=== PATIENT | male | born 1950 | race Caucasian/White ===

== ENCOUNTER 2020-01-10 16:21 | Inpatient (IN) | payer MEDICARE, SELFPAY ==
[2020-01-10] VITALS (8 sets, daily range): BP systolic 113–148; BP diastolic 70–103; PULSE 97–110; RESP 17–20; TEMP 36.4–36.7; O2SAT 99–100; BMI 32.0
--- NOTE | 2020-01-10 16:40 | PC.NURSE ---
MAKI HERRERA RN FROM [facility] CALLED REPORT [id number] ON PATIENT OBTAINED VERBAL ADMISSION ORDERS FROM HECTOR GALINDO APRN AT 1525 OF THE FOLLOWING ADMIT TO DR MELENDEZ FOR NSTEMI IN STEPDOWN CARDIAC DIET CONTINUE HEPARIN DRIP DOSING PER PHARMACY FSBS WITH LOW INTENSITY SLIDING SCALE ACHS ASPIRIN 81MG PO DAILY NS @ 50ML/HR TOPROL XL 25MG PO DAILY MORPHINE 1MG Q2HR IV FOR PAIN ZOFRAN 4MG IV Q6H FOR NAUSEA TYLENOL 650MG Q4H PRN FOR MILD PAIN UP ADLIB CONSULT CARDIOLOGY ECHO MORNING LABS CBC CMP LIVER AND LIPID PANEL SERIAL TROPONINS
--- NOTE | 2020-01-10 17:20 | HMH.ACPN2 ---
Internal Medicine - PN: Subj *Date: 01/10/20 *Time: 17:20 Interval history: Patient presented to [facility] ER today with a 4 day history of chest pain and pressure made worse by eating. EKG reportedly showed no ST changes but his troponin was elevated (around 2.5). Patient was then placed on a heparin drip. He has a history of coronary artery disease and has previously had stents placed by Dr. Hidalgo. I was called by Aurora Sanchez in Dr. Hidalgo's office to accept patient for a direct admission to [facility] from the ER in [facility]. Patient's primary MD is Dr. Yamil Muñoz in [place]. Pt has a history of Diabetes, GERD and hyperlipidemia. Exam Vital signs and Labs for Last 24 Hours: Temp Pulse Resp BP Pulse Ox 97.5 F L 98 H 17 130/83 100 01/10/20 16:43 01/10/20 16:43 01/10/20 16:43 01/10/20 16:43 01/10/20 16:43 I & O for Last 24 hours: Intake & Output 01/07/20 01/08/20 01/09/20 01/10/20 23:59 23:59 23:59 23:59 Weight 204 lb 8 oz - Constitutional no acute distress (conversant) - *Routine HEENT Exam Head: Present: normocephalic Eye: Present: EOMI, PERRL ENT: Present: mucous membranes moist - *Routine Neck Exam Present: supple. Absent: lymphadenopathy - *Routine Respiratory Exam Present: CTA bilaterally - *Routine Cardiovascular Exam Present: RRR - *Routine Abdominal Exam Present: soft, normoactive bowel sounds. Absent: tenderness - *Routine Extremities Exam Absent: cyanosis, clubbing, edema - *Routine Skin Exam Present: warm. Absent: rash - *Routine Neurological Exam Present: alert, oriented X3 Assessment and Plan (1) Non-STEMI (non-ST elevated myocardial infarction) Status: Acute Category: Medical Code(s): I21.4 - Non-ST elevation (NSTEMI) myocardial infarction (2) CAD (coronary artery disease) Status: Acute Qualifiers: Coronary Disease-Associated Artery/Lesion type: [place] artery [place] vs. transplanted heart: [place] heart Associated angina: with unstable angina Qualified Code(s): I25.110 - Atherosclerotic heart disease of [place] coronary artery with unstable angina pectoris Category: Medical Code(s): I25.10 - Atherosclerotic heart disease of [place] coronary artery without angina pectoris (3) History of coronary artery stent placement Status: Acute Category: Surgical Code(s): Z95.5 - Presence of coronary angioplasty implant and graft (4) DM2 (diabetes mellitus, type 2) Status: Acute Qualifiers: Diabetes mellitus penitentiary insulin use: without filler leaf cutter long use Category: Medical Code(s): E11.9 - Type 2 diabetes mellitus without complications (5) GERD (gastroesophageal reflux disease) Status: Acute Qualifiers: Esophagitis presence: esophagitis presence not specified Qualified Code(s): K21.9 - Gastro-esophageal reflux disease without esophagitis Category: Medical Code(s): K21.9 - Gastro-esophageal reflux disease without esophagitis (6) Hyperlipidemia Status: Acute Category: Medical Code(s): E78.5 - Hyperlipidemia, unspecified - Assessment and plan all Dx Assessment and Plan for all problems:: Patient admitted to [facility], orders per Cardiology, planning left heart cath in the morning.
[2020-01-10 18:02] LABS: Coronavirus 19 IgG Antibody Negative (Negative); Coronavirus 19 IgM Antibody Negative (Negative)
[2020-01-10 18:05] LABS: Activated Partial Thrombo Time 46.2 seconds (23.6-34.0)
--- NOTE | 2020-01-10 19:14 | PC.NURSE ---
report given to lisa
[2020-01-10 20:10] LABS: POC Glucose,Bedside 218 (70-110)
[2020-01-10 21:00] LABS: Activated Partial Thrombo Time 34.7 seconds (23.6-34.0)
[2020-01-10 21:11] LABS: Troponin I 2.02 ng/ml (0.00-0.034)
--- NOTE | 2020-01-10 21:36 | PC.NURSE ---
MD Adorno notified of troponin level 2.02. New orders: Cancel additional troponins. Spoke with Patrick Unger about PTT results 34.7. New orders: Increase Heparin gtt from 1000 units/hr to 1400 units/hr. New PTT in 6 hrs. Lab notified.
[2020-01-11] VITALS (27 sets, daily range): BP systolic 103–163; BP diastolic 61–97; PULSE 89–111; RESP 14–22; TEMP 36.6–36.9; O2SAT 90–100; BMI 31.4
--- NOTE | 2020-01-11 | IR_ITS ---
APPROVED REPORT Patient Location: Inpatient PROCEDURES Left heart catheterization Left ventriculogram Selective coronary angiogram INDICATION Acute non-ST elevation myocardial infarction Informed consent was obtained prior to the procedure. COMPLICATIONS none Estimated Blood Loss: less than 10 mls TECHNIQUE One percent lidocaine used to anesthetize the right anterior aspect of the wrist. The right radial artery was accessed via the Seldinger technique. A 6 Persian sheath was placed in the right radial artery. 2.5 mg of verapamil, 800 mcg of nitroglycerin, 1mg Lidocaine and 5000 U Heparin were given through the arterial sheath. The Poppa catheter was also used to perform left heart catheterization, left ventriculogram and selective coronary angiogram. At the end of the procedure the sheath was removed good hemostasis was achieved using Traclet band, patient was transferred to the postop holding area in stable condition. ANGIOGRAPHIC RESULTS The left main artery Normal The left anterior descending artery Double 90% in-stent restenosis as well as 90% edge stent restenosis. The mid LAD then has a 50% stenosis. This is a large vessel which wraps the apex and has distal 80% tandem stenoses The circumflex artery Gives rise to a small to medium sized ramus intermedius which has mid vessel 90 and 99% stenoses accompanied by MERLY II flow. The circumflex artery itself gives rise to a solitary obtuse marginal artery which has proximal 80% and mid vessel 80% stenoses The right coronary artery Is a dominant vessel and has a proximal eccentric calcified 80% stenosis followed by mid vessel 40% followed by distal 90% stenosis. The posterior lateral branch has a mid vessel 80% stenosis. The PRESLEY ventriculogram reveals Dilated ventricle ejection fraction 25 to 30% The left ventricular end-diastolic pressure Critically elevated at 60 mmHg IMPRESSION Severe to critical 3-4 vessel coronary disease as described above Severely reduced ejection fraction Critically elevated LVEDP PLAN 1. Patient requires immediate IV Lasix in order to decrease LVEDP 2. Patient will be transferred to [facility] for surgical revascularization Electronically signed by : Moise Hidalgo, 01/11/2020 13:12:01
[2020-01-11 00:40] LABS: POC Glucose,Bedside 155 (70-110)
[2020-01-11 03:52] LABS: Activated Partial Thrombo Time 47.6 seconds (23.6-34.0)
--- NOTE | 2020-01-11 06:20 | PC.NURSE ---
Byron BRIAN NOTIFIED OF CONSULT
[2020-01-11 06:29] LABS: Basophils # 0.1 K/mm3 (0-0.2); Basophils % 0.7 % (0.1-2.0); Eosinophils # 0.2 K/mm3 (0.0-0.4); Eosinophils % 2.4 % (0.1-12.0); Hematocrit 47.1 % (42.0-52.0); Hemoglobin 15.8 g/dL (14.1-18.0); Lymphocytes # 2.5 K/mm3 (0.7-4.5); Lymphocytes % 25.4 % (10-50); Mean Corpuscular HGB Conc 33.6 g/dL (31.8-35.4); Mean Corpuscular Hemoglobin 30.6 pg (27.0-31.2); Mean Platelet Volume 7.7 fl (7.4-10.4); Monocytes # 0.5 K/mm3 (0.1-1.0); Monocytes % 5.2 % (1.7-9.3); Neutrophils # 6.6 K/mm3 (1.8-7.8); Neutrophils % 66.3 % (37.0-80.0); Platelet Count 232 K/mm3 (142-424); Red Blood Count 5.17 M/mm3 (4.60-6.20); Red Cell Distribution Width 13.8 % (11.5-17.5)
[2020-01-11 06:35] LABS: Chloride 102 mmol/L (98-107)
[2020-01-11 06:36] LABS: Potassium 4.3 mmoL/L (3.5-5.1); Sodium 136 mmol/L (136-145)
[2020-01-11 06:38] LABS: Anion Gap 12.3 mEq/L (5-15); Bilirubin,Unconjugated 0.8 mg/dL (0.0-1.1); Blood Urea Nitrogen 12 mg/dl (9-20); Carbon Dioxide 26 mmol/L (22.0-30.0); Creatinine Clearance Estimated 91 mL/min (50-200); Estimated Glomerular Filt Rate 96 ml/min (>60); GFR (African American) 116 ML/MIN (>60)
[2020-01-11 06:39] LABS: Alanine Aminotransferase 27 U/L (12-78); Albumin Level 3.9 g/dl (3.5-5.0); Albumin/Globulin Ratio 1.3 (1.1-1.8); Alkaline Phosphatase 59 U/L (38-126); Aspartate Amino Transferase 26 U/L (17-59); Bilirubin,Indirect 0.8 mg/dL (0.0-0.9); Bilirubin,Total 0.8 mg/dl (0.2-1.3); Calcium 8.7 mg/dl (8.4-10.2); Chol/HDL Ratio 6.1 (1-3.5); Cholesterol 206 mg/dl (140-200); Globulin 2.9 g/dL (1.3-3.2); Glucose 205 mg/dl (74-100); HDL Cholesterol 34 mg/dl (40-60); Total Protein,Serum 6.8 g/dl (6.3-8.2); Triglycerides 135 mg/dl (30-150); VLDL Cholesterol 27 mg/dL (0-40)
--- NOTE | 2020-01-11 06:50 | PC.NURSE ---
Pt is NPO. Has had a shower this AM. Heparin gtt was increased this AM to 1500 units/hr per Patrick Unger. Pt denies any chest pain. Lungs are clear. BS active. VSS at this time. Pt is NSR with ST depression. Family remains at bedside. Will continue to moniotr.
[2020-01-11 06:51] LABS: POC Glucose,Bedside 190 (70-110)
--- NOTE | 2020-01-11 08:05 | HMH.PHAINT ---
HOME MEDICATION RECONCILIATION COMPLETED USING HOME PHARMACY LIST
--- NOTE | 2020-01-11 08:06 | P.CONPHA_ITS ---
[facility] Pharmacy VTE Monitoring - Patient Demographics Admission date: 01/11/20 Report Date: 01/11/20 Time: 08:06 Allergies/Adverse Reactions: Patient Allergies diphenhydramine [From Benadryl] Adverse Reaction (Verified 01/10/20 17:06) Anxiety Height: 1.7 m Weight: 90.917 kg Patient Problems: Current Active Problems CAD (coronary artery disease) (Acute) Non-STEMI (non-ST elevated myocardial infarction) (Acute) History of coronary artery stent placement (Acute) DM2 (diabetes mellitus, type 2) (Acute) GERD (gastroesophageal reflux disease) (Acute) Hyperlipidemia (Acute) - VTE Risk Labs: VTE Related Lab Results Hgb 15.8 g/dL (14.1-18.0) 01/11/20 06:05 Hct 47.1 % (42.0-52.0) 01/11/20 06:05 Plt Count 232 K/mm3 (142-424) 01/11/20 06:05 APTT 47.6 seconds (23.6-34.0) H D 01/11/20 03:30 BUN 12 mg/dl (9-20) 01/11/20 06:05 Creatinine 0.80 mg/dl (0.66-1.25) 01/11/20 06:05 Estimated Creat Clear 91 mL/min (50-200) 01/11/20 06:05 Was VTE Risk Assessment Performed: Yes VTE Score: 4 VTE Risk Level: Low Risk Clinical Trial Participant: No - Prophylaxis VTE Prophylaxis Ordered?: Yes Types of VTE Prophylaxis: TEDS Knee High
--- NOTE | 2020-01-11 08:14 | CA_ITS ---
APPROVED REPORT EXAM: Comprehensive 2D, Doppler, and color-flow Echocardiogram Remelt Pan Tank Operator: Greer Ferro RDCS Ht: 5 ft 6 in Wt: 200lbs BSA: 2.00 BP: 95/58 mmHg Indications: CAD,NSTEMI,CHF 2D Dimensions LVOT 2.12 cm (M/F) 1.5-2.5 M-Mode Dimensions RVDd 2.41 cm (0.9-2.6) LA Diam 3.86 cm (1.9-4.0) LVDd 5.19 cm (3.5-5.7) Ao Diam 3.36 cm (2.0-3.7) LVDs 4.38 cm (3.5-5.7) IVSd 1.65 cm (0.6-1.1) PWd 1.48 cm (0.6-1.1) EF (Teich) 32.70% FS 15.60% EDV (Teich) 128.90 mL ESV (Teich) 86.80 mL LV Diastology E Decel Time 90.00 (160-240 msec) E/A Ratio 1.2 MED E' 4.60 (< 7 cm/sec) E'/MED E' Ratio 14.78 (>14) LAT E' 8.40 (<10 cm/sec) E/LAT E' Ratio 8.10 (>14) Mitral Valve MV E Max Candelario. 68.00 (40-130 cm/s) MV A Velocity 56.00 (40-130 cm/s) E/A Ratio 1.21 MV Decel. Time 90.00 (160-240 ms) MV PHT 26.00 ms Left Ventricle Technically difficult study because of the patient fact in poor acoustic windows, repeat study with Definity contrast is recommended. Left atrium is mildly enlarged, left ventricle is normal size, mild concentric left ventricular hypertrophy, visually estimated ejection fraction is probably 40 to 45%, there appears to be moderate hypokinesis involving the basal septum, inferior basal and posterolateral wall, repeat study with Definity contrast is recommended. Diastolic parameters are inconclusive. Right Ventricle Right atrium and right ventricle are normal size and contractility. Aortic Valve Aortic valve is minimally thickened and fibrosed, there is no aortic stenosis or aortic insufficiency. Mitral Valve Mitral valve is grossly normal, there is mild mitral regurgitation. Tricuspid Valve Tricuspid valve is grossly normal, there is mild tricuspid regurgitation, tricuspid regurgitation jet velocity is inadequate for calculation of the right ventricular systolic pressure. Pulmonic Valve Pulmonic valve is poorly visualized. Great Vessels Aortic root is normal size. Pericardium No significant pericardial effusion noted. Conclusion 1. Technically difficult study because of the patient factors and poor acoustic windows, repeat study with Definity contrast is recommended. 2. Mildly enlarged left atrium, normal left ventricular size, mild concentric left ventricular hypertrophy, visually estimated ejection fraction approximately 40 to 45% with segmental wall motion abnormality described above, diastolic parameters are inconclusive. 3. Mild mitral and tricuspid regurgitation. 4. No significant pericardial effusion noted. Electronically signed by : Mir Terry, 01/11/2020 18:38:30
--- NOTE | 2020-01-11 08:18 | HMH.CNCARD ---
History of Present Illness Consult date: 01/11/20 Requesting physician: Hill Adorno Consult reason: chest pain Chief complaint: chest pain Additional Medical History:: 1. Coronary artery disease A. History of STEMI, 11/2014, resulting in multivessel stenting, intubation and mechanical ventilation and treatment for V. fib with third-degree heart block also for which temporary pacemaker and amiodarone therapy were used. B. [facility], 11/2014, MARILEE to LAD, ramus, circumflex and RCA C. [facility], 11/2015, stents present in Left main--ostial, prox,midsegment and patent, LAD stent with mild in-stent stenosis. stent in the ramus patent and free of restenosis, Circ stent mild in-stent stenosis,RCA with stent [id number], ,preserved EF, LVEDP is 10mmHg 2. Diabetes mellitus, type II 3. JAC, untreated 4. 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 BPH 6. Hyperlipidemia 7. History of CVA, 2015 8. Hypertension History of present illness: 69-year-old white male with extensive coronary history as noted above was recently on vacation in [place] when he developed substernal pressure type sensation that was worse after eating and would last approximately an hour in duration before improving. Symptoms were persistent over the weekend prompting him to return to this area on Friday. Symptoms were alleviated with 2 sublingual nitroglycerin on Friday but again returning again yesterday prompting him to seek attention and [facility]. Patient was diagnosed with non-ST elevation MT and transferred here to the services of Dr. Hidalgo who has previously cath the patient in the past. Patient denies any chest pressure overnight but has some soreness in the epigastric/diaphragmatic area. Peak troponin at this facility is 2.2 and is now declining. [facility] History Medical History: Reports:: Cancer (skin Cancer), Coronary Artery Disease, Diabetes Mellitus Type 2, Hyperlipidemia, Hypertension, Myocardial Infarction Denies:: MRSA *Have you ever received a pneumonia vaccine?: Yes *Have you received a flu vaccine this season?: No Other Surgeries: Yes: Cardiac Catheterization Amputation: No - *Social History Last grade of school completed: High school graduate Smoking Status: Never smoker Alcohol Intake: never *Occupational Status:: retired Housing: house Household Members: spouse *Travel in the last 8 weeks: None Family Hx:: Cancer, Coronary Artery Disease, Hypertension, Stroke Meds Home Medications Medication Instructions Recorded Confirmed Type Atorvastatin Calcium [Lipitor 40mg 40 mg PO HS 01/10/20 01/10/20 History Tablet*] Metformin HCl 500 mg PO BID 01/10/20 01/10/20 History Miscellaneous [Unknown Home 1 cap PO DAILY 01/10/20 01/10/20 History Medication] Omeprazole [Omeprazole 20mg Tab] 20 mg PO DAILY 01/10/20 01/10/20 History glipiZIDE [Glipizide] 10 mg PO BID 01/10/20 01/10/20 History Allergies Allergy/AdvReac Type Severity Reaction Status Date / Time diphenhydramine AdvReac Anxiety Verified 01/10/20 17:06 [From You] Exam Vital signs and Labs for Last 24 Hours: Temp Pulse Resp BP Pulse Ox 98.0 F 98 H 20 125/77 100 01/11/20 04:30 01/11/20 06:48 01/11/20 06:48 01/11/20 06:48 01/11/20 08:00 Laboratory Results - last 24 hr 01/10/20 17:18: Troponin I 2.20 H 01/10/20 17:18: SARS-CoV-2 IgG Ab (Rapid) Negative, SARS-CoV-2 IgM Ab (Rapid) Negative 01/10/20 17:18: APTT 46.2 H 01/10/20 19:56: POC Glucose 218 H 01/10/20 20:30: Troponin I 2.02 H 01/10/20 20:40: APTT 34.7 H 01/11/20 00:32: POC Glucose 155 H 01/11/20 03:30: APTT 47.6 H D 01/11/20 06:05: WBC 10.0, RBC 5.17, Hgb 15.8, Hct 47.1, MCV 91.0, MCH 30.6, MCHC 33.6, RDW 13.8, Plt Count 232, MPV 7.7, Neut % (Auto) 66.3, Lymph % (Auto) 25.4, [place] % (Auto) 5.2, Eos % (Auto) 2.4, Baso % (Auto) 0.7, Neut # (Auto) 6.6, Lymph # (Auto) 2.5, [place] # (Auto) 0.5, Eos # (Auto) 0.2, Baso # (Auto) 0.1 01/11/20 06:05: Sodium 136, Potassium 4.3, Chlo
--- NOTE | 2020-01-11 08:27 | XR_ITS ---
PROCEDURE: XR CHEST 2V CLINICAL HISTORY: SOA, NSTEMI COMPARISON: No exams were available for comparison FINDINGS: The lung sainz are fairly well expanded and appear clear of infiltrate. There is mild cardiomegaly and there is mild pulmonary congestion. There is a small to moderate right pleural effusion and a tiny left pleural effusion. There is some minimal fluid ascending into the major fissure. IMPRESSION: Mild cardiomegaly with findings of mild chronic congestive heart failure Dictated by: Dr. Isacc Bruner MD 01/11/2020 11:57 Dr. Isacc Bruner MD in [place] 01/11/2020 11:57
--- NOTE | 2020-01-11 08:50 | HMH.ACPN2 ---
Internal Medicine - PN: Subj *Date: 01/11/20 *Time: 08:50 Interval history: Patient with no new complaints today. Exam Vital signs and Labs for Last 24 Hours: Temp Pulse Resp BP Pulse Ox 98.0 F 98 H 20 125/77 100 01/11/20 04:30 01/11/20 06:48 01/11/20 06:48 01/11/20 06:48 01/11/20 08:00 Laboratory Results - last 24 hr 01/10/20 17:18: Troponin I 2.20 H 01/10/20 17:18: SARS-CoV-2 IgG Ab (Rapid) Negative, SARS-CoV-2 IgM Ab (Rapid) Negative 01/10/20 17:18: APTT 46.2 H 01/10/20 19:56: POC Glucose 218 H 01/10/20 20:30: Troponin I 2.02 H 01/10/20 20:40: APTT 34.7 H 01/11/20 00:32: POC Glucose 155 H 01/11/20 03:30: APTT 47.6 H D 01/11/20 06:05: WBC 10.0, RBC 5.17, Hgb 15.8, Hct 47.1, MCV 91.0, MCH 30.6, MCHC 33.6, RDW 13.8, Plt Count 232, MPV 7.7, Neut % (Auto) 66.3, Lymph % (Auto) 25.4, [place] % (Auto) 5.2, Eos % (Auto) 2.4, Baso % (Auto) 0.7, Neut # (Auto) 6.6, Lymph # (Auto) 2.5, [place] # (Auto) 0.5, Eos # (Auto) 0.2, Baso # (Auto) 0.1 01/11/20 06:05: Sodium 136, Potassium 4.3, Chloride 102, Carbon Dioxide 26, Anion Gap 12.3, BUN 12, Creatinine 0.80, Estimated Creat Clear 91, Estimated GFR 96, Est GFR ( Amer) 116, Glucose 205 H, Calcium 8.7, Total Bilirubin 0.8, Direct Bilirubin 0.0, Conjugated Bilirubin 0.0, Indirect Bilirubin 0.8, Unconjugated Bilirubin 0.8, AST 26, ALT 27, Alkaline Phosphatase 59, Total Protein 6.8, Albumin 3.9, Globulin 2.9, Albumin/Globulin Ratio 1.3, Triglycerides 135, Cholesterol 206 H, LDL Cholesterol Direct 135.00 H, VLDL Cholesterol 27, HDL Cholesterol 34 L, Cholesterol/HDL Ratio 6.1 H 01/11/20 06:38: POC Glucose 190 H I & O for Last 24 hours: Intake & Output 01/08/20 01/09/20 01/10/20 01/11/20 23:59 23:59 23:59 23:59 Output Total 575 / 575 Balance -575 / -575 Weight 204 lb 8 oz 200 lb 7 oz - Constitutional no acute distress - *Routine HEENT Exam Head: Present: normocephalic Eye: Present: EOMI ENT: Present: mucous membranes moist - *Routine Neck Exam Present: supple. Absent: lymphadenopathy - *Routine Respiratory Exam Present: CTA bilaterally - *Routine Cardiovascular Exam Present: RRR - *Routine Abdominal Exam Present: soft, normoactive bowel sounds. Absent: tenderness - *Routine Extremities Exam Absent: cyanosis, clubbing, edema - *Routine Skin Exam Present: warm. Absent: rash - *Routine Neurological Exam Present: alert, oriented X3 Assessment and Plan (1) Non-STEMI (non-ST elevated myocardial infarction) Status: Acute Category: Medical Code(s): I21.4 - Non-ST elevation (NSTEMI) myocardial infarction (2) CAD (coronary artery disease) Status: Acute Qualifiers: Coronary Disease-Associated Artery/Lesion type: [place] artery [place] vs. transplanted heart: [place] heart Associated angina: with unstable angina Qualified Code(s): I25.110 - Atherosclerotic heart disease of [place] coronary artery with unstable angina pectoris Category: Medical Code(s): I25.10 - Atherosclerotic heart disease of [place] coronary artery without angina pectoris (3) History of coronary artery stent placement Status: Acute Category: Surgical Code(s): Z95.5 - Presence of coronary angioplasty implant and graft (4) DM2 (diabetes mellitus, type 2) Status: Acute Qualifiers: Diabetes mellitus alf insulin use: without alf use Category: Medical Code(s): E11.9 - Type 2 diabetes mellitus without complications (5) GERD (gastroesophageal reflux disease) Status: Acute Qualifiers: Esophagitis presence: esophagitis presence not specified Qualified Code(s): K21.9 - Gastro-esophageal reflux disease without esophagitis Category: Medical Code(s): K21.9 - Gastro-esophageal reflux disease without esophagitis (6) Hyperlipidemia Status: Acute Category: Medical Code(s): E78.5 - Hyperlipidemia, unspecified - Assessment and plan all Dx Assessment and Plan for all problems:: Left heart cath today, echo andiin
--- NOTE | 2020-01-11 09:30 | HMH.HP ---
*Admission Date: 01/11/20 <Shima Sharma - 01/11/20 09:40> *Chief complaint: Chest pain <Shima Sharma 01/11/20 09:40> *History of present illness: As per cardiology note. 69-year-old white male with extensive coronary history and other history as follows: 1. Coronary artery disease A. History of STEMI, 11/2014, resulting in multivessel stenting, intubation and mechanical ventilation and treatment for V. fib with third-degree heart block also for which temporary pacemaker and amiodarone therapy were used. B. [facility], 11/2014, MARILEE to LAD, ramus, circumflex and RCA C. [facility], 11/2015, stents present in Left main--ostial, prox,midsegment and patent, LAD stent with mild in-stent stenosis. stent in the ramus patent and free of restenosis, Circ stent mild in-stent stenosis,RCA with stent [id number], ,preserved EF, LVEDP is 10mmHg 2. Diabetes mellitus, type II 3. JAC, untreated 4. 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 BPH 6. Hyperlipidemia 7. History of CVA, 2015 8. Hypertensionas Patient was recently on vacation in [place] when he developed substernal pressure type sensation that was worse after eating and would last approximately an hour in duration before improving. Symptoms were persistent over the weekend prompting him to return to this area on Friday. Symptoms were alleviated with 2 sublingual nitroglycerin on Friday but again returning again yesterday prompting him to seek attention and [facility]. Patient was diagnosed with non-ST elevation ID and transferred here to the services of Dr. Hidalgo who has previously cathed the patient in the past. Patient denies any chest pressure overnight but has some soreness in the epigastric/diaphragmatic area. Peak troponin at this facility is 2.2 and is now declining. Patient states he has had some nausea but no vomiting. At the time of this exam patient is comfortable. He states he has had some restlessness but denies chest pain. <Shima Sharma 01/11/20 09:40> [facility] History Medical History: Reports:: Cancer (skin Cancer), Coronary Artery Disease, Diabetes Mellitus Type 2, Hyperlipidemia, Hypertension, Myocardial Infarction Denies:: MRSA, Seizures <SharmaShima 01/11/20 09:40> *Have you ever received a pneumonia vaccine?: Yes <SharmaShima soriano 01/11/20 09:40> *Have you received a flu vaccine this season?: No <Shima Sharma 01/11/20 09:40> Other Surgeries: Yes: Cardiac Catheterization, Coronary Stent, Pacemaker <Shima Sharma 01/11/20 09:40> Amputation: No <ZacharyShima - 01/11/20 09:40> - *Social History Last grade of school completed: High school graduate <Sharma,Shima - 01/11/20 09:40> Smoking Status: Never smoker <Shima Sharma 01/11/20 09:40> Alcohol Intake: never <Shima Sharma 01/11/20 09:40> *Occupational Status:: retired <Shima Sharma 01/11/20 09:40> Housing: house <Shima Sharma 01/11/20 09:40> Household Members: spouse <Shima Sharma 01/11/20 09:40> *Travel in the last 8 weeks: None <SharmaShima soriano 01/11/20 09:40> Family Hx:: Cancer, Coronary Artery Disease, Diabetes, Hypertension, Stroke <Shima Sharma 01/11/20 09:40> Review of Systems - Constitutional Denies fever(s) <Shima Sharma 01/11/20 09:40> - Eyes Denies change in vision <Shima Sharma 01/11/20 09:40> - ENT Denies difficulty swallowing, Denies ear pain, Denies sore throat <Shima Sharma 01/11/20 09:40> - *Cardiovascular Reports chest pain, Reports shortness of breath, Denies leg swelling, Denies rapid, pounding, or irregular heartbeat <Shima Sharma 01/11/20 09:40> - *Respiratory Reports shortness of breath, Denies chest congestion, Denies cough <Shima Sharma 01/11/20 09:40> - *Gastrointestinal Reports excessive passing of gas, Reports nausea, Denies belching, Denies constipation, Denies heartburn, Denies black, tarry stools, Denies vomiting <Shima Sharma - 01/11/20 09:40> - *Genitourinary Reports difficu
[2020-01-11 10:25] LABS: Activated Partial Thrombo Time 52.5 seconds (23.6-34.0)
[2020-01-11 10:28] LABS: NT Pro Brain Natriuretic Pep. 2040 pg/mL (0-125)
--- NOTE | 2020-01-11 15:31 | PC.NURSE ---
Heparin gtt restarted @ 31 mls/hr at this time per Jin Parekh.
[2020-01-11 16:22] LABS: POC Glucose,Bedside 226 (70-110)
--- NOTE | 2020-01-11 19:48 | PC.NURSE ---
AWAITING BED @ . PT RESTING IN BED COMFORTABLY. NO COMPLAINTS VOICED. ON 2 L O2 PER NASAL CANNULA. NSR W/ ST DEPRESSION NOTED ON TELY, UNCHANGED FROM PREV SHIFT. REMAINS AFEBRILE. AMBULATES W/ STANDBY ASSISTANCE TO BATHROOM, TOLERATING ACTIVITY WELL. VOIDING W/O DIFFICULTY. BM THIS SHIFT. R RADIAL CATH SITE DRESSING W/ QUARTER SIZE SEROSANG SHADOWING NOTED. CAP REFILL <3 SEC. PULSES PRESENT AND EQUAL. HEPARIN GTT INFUSING @ 31 MLS/HR. AT BEDSIDE. CALL GUILHERME W/IN REACH.
[2020-01-11 21:38] LABS: POC Glucose,Bedside 153 (70-110)
[2020-01-11 22:25] LABS: Activated Partial Thrombo Time 34.4 seconds (23.6-34.0)
--- NOTE | 2020-01-11 22:30 | PC.NURSE ---
Vicenta VALENTIN, PHARMACIST CALLED THIS RN AND INSTRUCTED TO ADJUST HEPARIN GTT TO 1700 UNITS, 34 ML/HR.
[2020-01-12] VITALS: BP 133/67; BP 133/68; PULSE 90; PULSE 92; PULSE 94; RESP 15; RESP 25; TEMP 36.7; O2SAT 92; O2SAT 93
--- NOTE | 2020-01-12 01:37 | PC.NURSE ---
[facility] CALLED WITH UPDATE THAT THERE ARE NO BEDS AVAILABLE AT THIS TIME.
[2020-01-12 02:00] VITALS: BP 129/80; PULSE 98; O2SAT 93
--- NOTE | 2020-01-12 02:18 | PC.NURSE ---
A&OX3. MANAGER HUMAN CAPITAL EQUAL BILAT. LUNGS CLEAR T/O AUSCULTATION. INCREASED OXYGEN FROM 2L TO 3LNC THIS SHIFT R/T O2SAT NOTED 86%-89% WHILE SLEEPING. NSR WITH ST DEPRESSION PER GARBAGE STOKER. PT NOTED WITH HR 110-120 WHILE STANDING AT BEDSIDE TO USE URINAL, ONCE BACK IN BED AND RESTING HR WNL. PULSE +2. CAP REFILL <3 SEC. SKIN IS PINK AND WARM PER PALPATION. RIGHT RADIAL SITE NOTED CDI. INDEPENDENT WITH ADL'S. NO COMPLAINTS STATED THIS SHIFT. VSS. WILL CONTINUE TO MONITOR.
[2020-01-12 04:00] VITALS: BP 131/87; PULSE 90; PULSE 97; RESP 17; TEMP 36.6; O2SAT 91
[2020-01-12 05:25] LABS: Activated Partial Thrombo Time 65.4 seconds (23.6-34.0)
--- NOTE | 2020-01-12 05:36 | PC.NURSE ---
Vicenta VALENTIN, PHARMACIST INSTRUCTED TO KEEP HEPARIN GTT AT SAME RATE OF 1700 UNITS, 34ML/HR R/T 0430 PTT.
[2020-01-12 06:00] VITALS: BP 128/68; PULSE 89; O2SAT 91
[2020-01-12 08:00] VITALS: BP 118/70; PULSE 84; PULSE 89; RESP 16; O2SAT 92
--- NOTE | 2020-01-12 08:16 | HMH.ACPN2 ---
Internal Medicine - PN: Subj *Date: 01/12/20 *Time: 08:16 Interval history: Patient with no new complaints this morning, awaiting bed at . Exam Vital signs and Labs for Last 24 Hours: Temp Pulse Resp BP Pulse Ox 98 F 89 16 118/70 92 L 01/12/20 04:00 01/12/20 08:00 01/12/20 08:00 01/12/20 08:00 01/12/20 08:00 Laboratory Results - last 24 hr 01/11/20 09:50: APTT 52.5 H* D 01/11/20 09:50: NT-Pro-B Natriuret Pep 2040 H 01/11/20 14:20: APTT 41.0 H D 01/11/20 15:58: POC Glucose 226 H 01/11/20 21:15: POC Glucose 153 H 01/11/20 21:40: APTT 34.4 H 01/12/20 04:45: APTT 65.4 H* D Vital Signs - 24 hr 01/11/20 13:10 01/11/20 13:13 01/11/20 13:20 Temperature Pulse Rate Pulse Rate [Apical] 100 H 97 H 98 H Pulse Rate [Left Brachial] Respiratory Rate 20 20 20 Blood Pressure [Left Arm] 127/82 132/89 130/87 02 Sat by Pulse Oximetry 91 L 94 L 92 L 01/11/20 13:25 01/11/20 13:40 01/11/20 13:55 Temperature 97.9 F Pulse Rate Pulse Rate [Apical] 97 H 100 H 97 H Pulse Rate [Left Brachial] Respiratory Rate 20 20 18 Blood Pressure [Left Arm] 125/85 126/77 126/80 02 Sat by Pulse Oximetry 96 96 91 L 01/11/20 14:25 01/11/20 14:55 01/11/20 15:25 Temperature 98.1 F 97.9 F Pulse Rate Pulse Rate [Apical] 89 97 H 101 H Pulse Rate [Left Brachial] Respiratory Rate 14 16 16 Blood Pressure [Left Arm] 113/79 132/83 163/97 H 02 Sat by Pulse Oximetry 97 93 L 92 L 01/11/20 15:55 01/11/20 16:00 01/11/20 16:25 Temperature 98.0 F 98.1 F Pulse Rate 100 H Pulse Rate [Apical] 103 H 111 H Pulse Rate [Left Brachial] Respiratory Rate 16 18 Blood Pressure [Left Arm] 120/74 140/89 02 Sat by Pulse Oximetry 94 L 90 L 01/11/20 17:25 01/11/20 18:25 01/11/20 19:25 Temperature 98.1 F 98.0 F Pulse Rate Pulse Rate [Apical] 104 H 103 H Pulse Rate [Left Brachial] 93 H Respiratory Rate 16 16 16 Blood Pressure [Left Arm] 122/82 127/79 103/68 L 02 Sat by Pulse Oximetry 92 L 92 L 91 L 01/11/20 20:00 01/11/20 20:25 01/11/20 22:00 Temperature 98.4 F 98.1 F Pulse Rate 100 H Pulse Rate [Apical] Pulse Rate [Left Brachial] 98 H 95 H 94 H Respiratory Rate 22 15 18 Blood Pressure [Left Arm] 119/77 115/61 127/85 02 Sat by Pulse Oximetry 90 L 90 L 92 L 01/12/20 00:00 01/12/20 02:00 01/12/20 04:00 Temperature 98.1 F 98 F Pulse Rate 90 90 Pulse Rate [Apical] Pulse Rate [Left Brachial] 92 H 98 H 97 H Respiratory Rate 15 17 Blood Pressure [Left Arm] 133/68 129/80 131/87 02 Sat by Pulse Oximetry 93 L 93 L 91 L 01/12/20 06:00 01/12/20 08:00 Temperature Pulse Rate Pulse Rate [Apical] Pulse Rate [Left Brachial] 89 89 Respiratory Rate 16 Blood Pressure [Left Arm] 128/68 118/70 02 Sat by Pulse Oximetry 91 L 92 L I & O for Last 24 hours: Intake & Output 01/09/20 01/10/20 01/11/20 01/12/20 23:59 23:59 23:59 23:59 Intake Total 821 / 821 Output Total 2124 1375 / 1375 Balance -2124 / -2124 -554 / -554 Weight 204 lb 8 oz 200 lb 7 oz - Constitutional no acute distress - *Routine HEENT Exam Head: Present: normocephalic Eye: Present: EOMI ENT: Present: mucous membranes moist - *Routine Neck Exam Present: supple. Absent: lymphadenopathy - *Routine Respiratory Exam Present: CTA bilaterally - *Routine Cardiovascular Exam Present: RRR - *Routine Abdominal Exam Present: soft, normoactive bowel sounds. Absent: tenderness - *Routine Extremities Exam Absent: cyanosis, clubbing, edema - *Routine Skin Exam Present: warm. Absent: rash - *Routine Neurological Exam Present: alert, oriented X3 Assessment and Plan (1) Non-STEMI (non-ST elevated myocardial infarction) Status: Acute Category: Medical Code(s): I21.4 - Non-ST elevation (NSTEMI) myocardial infarction (2) CAD (coronary artery disease) Status: Acute Qualifiers: Coronary Disease-Associated Artery/Lesion type: [place] artery [place] vs. transplanted hea
--- NOTE | 2020-01-12 08:27 | HMH.PHAHEP ---
[facility] Pharmacy Heparin Dosing - Demographic Data Admission date:: 01/10/20 Date: 01/12/20 Time: 08:27 Allergies/Adverse Reactions: Allergies Allergy/AdvReac Type Severity Reaction Status Date / Time diphenhydramine AdvReac Anxiety Verified 01/10/20 17:06 [From [place]] Height: 1.7 m Weight: 90.9 kg - Indication Medication therapy:: Heparin Current Indications:: NSTEMI Patient Problems: Current Active Problems CAD (coronary artery disease) (Acute) Non-STEMI (non-ST elevated myocardial infarction) (Acute) History of coronary artery stent placement (Acute) DM2 (diabetes mellitus, type 2) (Acute) GERD (gastroesophageal reflux disease) (Acute) Hyperlipidemia (Acute) CVA?: No Bleeding problem?: No Kidney disease?: No NE?: Yes Desired PTT range:: 60-80 seconds - Monitoring Dose Monitor 1 Date: 01/10/20 Time: 17:18 PTT Result:: 46.2 Infusion Rate:: 1000 UNITS/HR = 20 ML/HR Comment:: PATIENT CAME FROM [facility] ALREADY STARTED ON HEPARIN DRIP. Dose Monitor 2 Date: 01/10/20 Time: 20:40 PTT Result:: 34.7 Infusion Rate:: 28 ML/HR Dose Monitor 3 Date: 01/11/20 Time: 03:30 PTT Result:: 47.6 Infusion Rate:: 30 ML/HR Comment:: [id number] Dose Monitor 4 Date: 01/11/20 Time: 10:00 PTT Result:: 52.5 Infusion Rate:: HEPARIN DRIP WAS STOPPED FOR SEVERAL HOURS BY SAND BOBBER DURING PROCEDURE. Dose Monitor 5 Date: 01/11/20 Time: 14:20 PTT Result:: 41.0 Infusion Rate:: 1550 UNITS/HR = 31 ML/HR Comment:: PTT DRAWN AND DRIP RESTARTED AT 31 ML/HR WHEN PATIENT RETURNED TO 2ND FLOOR. PATIENT IS AWAITING TRANSFER TO . Dose Monitor 6 Date: 01/11/20 Time: 21:30 PTT Result:: 34.4 Infusion Rate:: 1700 UNITS/HR = 34 ML/HR Dose Monitor 7 Date: 01/12/20 Time: 04:30 PTT Result:: 65.4 Infusion Rate:: 34 ML/HR Dose Monitor 8 Date: 01/12/20 Time: 11:30 Comment:: PATIENT TRANSFERRED TO . - Core Measures Is INR > or = 2 at discharge?: No Most Recent Labs:: Laboratory Results - last 24 hr 01/11/20 09:50: APTT 52.5 H* D 01/11/20 09:50: NT-Pro-B Natriuret Pep 2040 H 01/11/20 14:20: APTT 41.0 H D 01/11/20 15:58: POC Glucose 226 H 01/11/20 21:15: POC Glucose 153 H 01/11/20 21:40: APTT 34.4 H 01/12/20 04:45: APTT 65.4 H* D Were Heparin and Warfarin started on the same day?: No If not, why?: PATIENT TRANSFERRED TO
--- NOTE | 2020-01-12 10:16 | HMH.PNCARD ---
Subjective Date: 01/12/20 Time: 10:05 Principal diagnosis: non-stemi Interval history: This is a 69-year-old white gentleman who was admitted to the hospital for a non-ST elevation myocardial infarction. The patient did undergo left cardiac catheterization yesterday and was found to have severe to critical 3-4 vessel coronary artery disease with severely reduced ejection fraction and a critically elevated LVEDP. The patient has been being diuresed on Lasix. He has an -2 L fluid balance overnight tonight. The patient will be transferred to [facility] for surgical revascularization. We are currently awaiting a bed. He denies any chest pain or pressure this morning. He states his shortness of breath is significantly improved overnight. He denies any fever, chills, nausea, vomiting, diarrhea. The patient states that he has felt much better with diuresis. Exam Vital signs and Labs for Last 24 Hours: Temp Pulse Resp BP Pulse Ox 98 F 89 16 118/70 92 L 01/12/20 04:00 01/12/20 08:00 01/12/20 08:00 01/12/20 08:00 01/12/20 08:00 Laboratory Results - last 24 hr 01/11/20 09:50: APTT 52.5 H* D 01/11/20 09:50: NT-Pro-B Natriuret Pep 2040 H 01/11/20 14:20: APTT 41.0 H D 01/11/20 15:58: POC Glucose 226 H 01/11/20 21:15: POC Glucose 153 H 01/11/20 21:40: APTT 34.4 H 01/12/20 04:45: APTT 65.4 H* D I & O for Last 24 hours: Intake & Output 01/09/20 01/10/20 01/11/20 01/12/20 23:59 23:59 23:59 23:59 Intake Total 821 / 821 Output Total 2124 / 2124 1375 / 1375 Balance -2124 / -2124 -554 / -554 Weight 204 lb 8 oz 200 lb 7 oz 200 lb 6.403 oz Narrative: Telemetry strip shows sinus rhythm with a rate of 89. - Constitutional no acute distress, obese - *Routine HEENT Exam Head: Present: normocephalic, atraumatic Eye: Present: EOMI, PERRL ENT: Present: mucous membranes moist - *Routine Neck Exam Present: supple, full ROM, normal carotid upstroke. Absent: JVD, carotid bruit, lymphadenopathy - *Routine Respiratory Exam Present: CTA bilaterally - *Routine Cardiovascular Exam Present: RRR, Normal S1, Normal S2. Absent: murmur - *Routine Abdominal Exam Present: soft, normoactive bowel sounds. Absent: tenderness, distended - *Routine Extremities Exam Present: full ROM, pulses intact, normal capillary refill. Absent: cyanosis, clubbing, edema - *Routine Skin Exam Present: intact, warm. Absent: erythema, rash - *Routine Neurological Exam Present: alert, oriented X3, CN II-XII intact. Absent: sensory deficit, motor deficit Progress Note: A&P (1) Non-STEMI (non-ST elevated myocardial infarction) Status: Acute (2) CAD (coronary artery disease) Status: Acute (3) History of coronary artery stent placement Status: Acute (4) DM2 (diabetes mellitus, type 2) Status: Acute (5) GERD (gastroesophageal reflux disease) Status: Acute (6) Hyperlipidemia Status: Acute Assessment and Plan for All Diagnoses:: Plan: 1. Patient was admitted to the hospital with non-ST ovation myocardial infarction. He underwent left cardiac catheterization yesterday and was found to have severe to critical 3-4 vessel disease which will require surgical revascularization. The patient has been accepted by the [facility] and we are currently awaiting a bed for transfer. He denies any chest pain or pressure this morning. He remains on aspirin at this time. 2. The patient also had a critically elevated LVEDP at 60 mmHg. He has been diuresed with IV Lasix. He had a -2 L fluid balance overnight. He states her shortness of breath has improved significantly and he is feeling better. We will continue with IV diuresis at this time he does need significant diuresis secondary to his severely elevated LVEDP 3. We will continue aspirin. 4. We will start bisoprolol 5 mg p.o. daily for beta-chapo given his coronary artery disease. We will hold off on an DEMETRIA inhibitor at this time as his b
--- NOTE | 2020-01-12 10:19 | PC.NURSE ---
Attempted to call report to [facility], they state the room is being cleaned, will attempt to call back in 30 minutes.
[2020-01-12 11:02] LABS: POC Glucose,Bedside 264 (70-110)
--- NOTE | 2020-01-12 11:53 | PC.NURSE ---
1106- Report called to Dianna CHARLES at at this time, [facility] contacted for transfer 1154- [facility] to floor to transport patient to , left unit with heparin drip infusing at 1700 units/hr, on 3LNC, left in stable condition.
--- NOTE | 2020-01-13 06:04 | HMH.DCSUM ---
General - General Admission date:: 01/10/20 Discharge date: 01/12/20 HPI HPI: As per cardiology note: 69-year-old white male with extensive coronary history and other history as follows: 1. Coronary artery disease A. History of STEMI, 11/2014, resulting in multivessel stenting, intubation and mechanical ventilation and treatment for V. fib with third-degree heart block also for which temporary pacemaker and amiodarone therapy were used. B. [facility], 11/2014, MARILEE to LAD, ramus, circumflex and RCA C. [facility], 11/2015, stents present in Left main--ostial, prox,midsegment and patent, LAD stent with mild in-stent stenosis. stent in the ramus patent and free of restenosis, Circ stent mild in-stent stenosis,RCA with stent [id number], ,preserved EF, LVEDP is 10mmHg 2. Diabetes mellitus, type II 3. JAC, untreated 4. 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 BPH 6. Hyperlipidemia 7. History of CVA, 2015 8. Hypertensionas Patient was recently on vacation in [place] when he developed substernal pressure type sensation that was worse after eating and would last approximately an hour in duration before improving. Symptoms were persistent over the weekend prompting him to return to this area on Friday. Symptoms were alleviated with 2 sublingual nitroglycerin on Friday but again returning again yesterday prompting him to seek attention at [facility]. Patient was diagnosed with non-ST elevation [place] and transferred to [facility] to the services of Dr. Hidalgo who had previously cathed the patient in the past. Patient denied any chest pressure overnight but had some soreness in the epigastric/diaphragmatic area. Peak troponin at [facility] facility was 2.2 and was declining. Patient stated he had some nausea but no vomiting. At the time of exam patient was comfortable. He stated he experienced some restlessness but denied chest pain. Hospital Course Hospital Course: Patient was admitted directly from the [facility]. He was maintained on a heparin drip and started on bisoprolol, Lasix 40 IV every 8 hours, sliding scale insulin, and nitroglycerin as needed. He was seen by cardiology and followed by them. He did have a cardiac catheterization with the following results.: ANGIOGRAPHIC RESULTS The left main artery Normal The left anterior descending artery Double 90% in-stent restenosis as well as 90% edge stent restenosis. The mid LAD then has a 50% stenosis. This is a large vessel which wraps the apex and has distal 80% tandem stenoses The circumflex artery Gives rise to a small to medium sized ramus intermedius which has mid vessel 90 and 99% stenoses accompanied by MERLY II flow. The circumflex artery itself gives rise to a solitary obtuse marginal artery which has proximal 80% and mid vessel 80% stenoses The right coronary artery Is a dominant vessel and has a proximal eccentric calcified 80% stenosis followed by mid vessel 40% followed by distal 90% stenosis. The posterior lateral branch has a mid vessel 80% stenosis. The PRESLEY ventriculogram reveals Dilated ventricle ejection fraction 25 to 30% The left ventricular end-diastolic pressure Critically elevated at 60 mmHg IMPRESSION Severe to critical 3-4 vessel coronary disease as described above Severely reduced ejection fraction Critically elevated LVEDP PLAN 1. Patient requires immediate IV Lasix in order to decrease LVEDP 2. Patient will be transferred to [facility] for surgical revascularization Bed was not immediately available at the [facility]. The patient was diuresed with the Lasix will a -2 L fluid balance overnight. He continues to deny any chest pain or pressure the following morning. Shortness of breath significantly improved with the diuresis. In the p.m. of 01/12/2020 bed was obtained at [facility]. He was transferred via ambulance with EMS for further cardiac intervention. He was
--- NOTE | 2020-01-14 08:17 | INFXCTL.NOTE ---
[facility] Infection Control Department called on 01/14/20 and stated that they tested patient for COVID-19 on 01/12/20, and patient is positive. Updated records to reflect.
== END 2020-01-12 11:55 | disposition short-term general hospital (02) | DRG 281 ==
PROVIDERS: Internal Medicine; Nurse Practitioner Family; Physician Assistant; Admitting Provider Family Medicine; PCP Family Medicine; Visit Provider Family Medicine
PROC: 4A023N7 Measurement of Cardiac Sampling and Pressure, Left Heart, Percutaneous Approach (ICD-10-PCS; principal; 2020-01-11 10:00)
DX: I21.4 Non-ST elevation (NSTEMI) myocardial infarction (principal); T82.855A Stenosis of coronary artery stent, initial encounter; I25.118 Atherosclerotic heart disease of native coronary artery with other forms of angina pectoris; K21.9 Gastro-esophageal reflux disease without esophagitis; E78.5 Hyperlipidemia, unspecified; E11.9 Type 2 diabetes mellitus without complications; Z95.5 Presence of coronary angioplasty implant and graft
CPT/HCPCS: 36415; 71046; 80053; 80061; 80076; 82962; 83880; 84484; 85025; 85730; 86328; 93306; 93458; 99152; C1725; C1769; J1644; Q9967

== ENCOUNTER → 2020-03-20 10:47 | Outpatient (CLI) | payer MEDICARE, SELFPAY ==
--- NOTE | 2020-03-20 10:49 | CA_ITS ---
APPROVED REPORT EXAM: Comprehensive 2D, Doppler, and color-flow Echocardiogram Operating Systems Specialist: Chaparrita Davis CRT Ht: 5 ft 6 in Wt: 194lbs BSA: 1.97 BP: 107/70 mmHg Indications: CAD, Cardiomyopathy, Stemi, CABG 02/15/20, post covid,GERD, pacer, 2D Dimensions LVOT 1.95 cm (M/F) 1.5-2.5 M-Mode Dimensions RVDd 3.22 cm (0.9-2.6) LA Diam 4.79 cm (1.9-4.0) LVDd 5.83 cm (3.5-5.7) Ao Diam 4.30 cm (2.0-3.7) LVDs 4.84 cm (3.5-5.7) IVSd 1.45 cm (0.6-1.1) PWd 0.68 cm (0.6-1.1) EF (Teich) 35.00% FS 17.00% EDV (Teich) 168.50 mL ESV (Teich) 109.60 mL LV Diastology E Decel Time 190.00 (160-240 msec) E/A Ratio 1.00 MED E' 4.20 (< 7 cm/sec) E'/MED E' Ratio 19.76 (>14) LAT E' 7.10 (<10 cm/sec) E/LAT E' Ratio 11.69 (>14) Aortic Valve AO Peak GR. 6.80 mmHg Mitral Valve MV A Velocity 83.00 (40-130 cm/s) E/A Ratio 1.00 MV Decel. Time 190.00 (160-240 ms) Pulmonary Valve PV Peak Velocity 58.00 (50-150 cm/s) Tricuspid Valve TR P. Velocity 232.00 cm/s RAP Estimate 10.00 mmHg RVSP 31.60 mmHg Left Ventricle Technically difficult study because of the patient factors and poor acoustic windows. Left atrium is mildly enlarged, left ventricle is normal size, mild concentric left ventricular hypertrophy, visually estimated ejection fraction approximately 45 to 50%, there is abnormal septal motion, there appears to be mild hypokinesis involving the distal septum and apical wall. If clinically indicated repeat study with Definity contrast is recommended. Diastolic parameters are inconclusive. Right Ventricle Right atrium and right ventricle are normal size and contractility, historically patient has pacemaker, the leads are not visualized in this study. Aortic Valve Aortic valve is thickened and calcified leaflet continue to display good mobility, there is no aortic stenosis or aortic insufficiency. Mitral Valve Mitral valve has mitral calcification, leaflets are minimally thickened, there is no mitral stenosis, there is mild mitral regurgitation. Tricuspid Valve Tricuspid valve is grossly normal, there is mild tricuspid regurgitation. Tricuspid regurgitation jet velocity is inadequate for calculation of the right ventricular systolic pressure. Pulmonic Valve Pulmonic valve is poorly visualized. Great Vessels Aortic root is normal size. Pericardium Small pericardial effusion noted. Conclusion 1. Technically difficult study. Mildly enlarged left atrium, normal left ventricular size, visually estimated ejection fraction 45 to 50%, there is abnormal septal motion and segmental wall motion abnormality described above, diastolic parameters are inconclusive. 2. Historically patient has pacemaker, the leads are not visualized in the study. 3. Mild mitral and tricuspid regurgitation. 4. Small pericardial effusion noted. Electronically signed by : Mir Terry, 03/21/2020 06:19:59
== END ==
PROVIDERS: PCP Family Medicine; Visit Provider Nurse Practitioner Family
DX: E11.69 Type 2 diabetes mellitus with other specified complication (principal); E78.5 Hyperlipidemia, unspecified; I21.4 Non-ST elevation (NSTEMI) myocardial infarction; I25.110 Atherosclerotic heart disease of native coronary artery with unstable angina pectoris; I25.5 Ischemic cardiomyopathy; K21.9 Gastro-esophageal reflux disease without esophagitis; Z95.1 Presence of aortocoronary bypass graft; Z95.5 Presence of coronary angioplasty implant and graft; Z79.84 Long term (current) use of oral hypoglycemic drugs
CPT/HCPCS: 93306

== ENCOUNTER → 2021-10-15 09:42 | Outpatient (CLI) | payer MEDICARE, SELFPAY ==
[2021-10-15 10:11] LABS: Basophils # 0.1 K/mm3 (0-0.2); Basophils % 0.8 % (0.1-2.0); Eosinophils # 0.2 K/mm3 (0.0-0.4); Eosinophils % 1.9 % (0.1-12.0); Hematocrit 48.3 % (42.0-52.0); Hemoglobin 15.5 g/dL (14.1-18.0); Lymphocytes # 1.3 K/mm3 (0.7-4.5); Lymphocytes % 16.3 % (10-50); Mean Corpuscular HGB Conc 32.1 g/dL (31.8-35.4); Mean Corpuscular Hemoglobin 30.1 pg (27.0-31.2); Mean Corpuscular Volume 93.8 fl (80-94); Mean Platelet Volume 8.2 fl (7.4-10.4); Monocytes # 0.4 K/mm3 (0.1-1.0); Monocytes % 5.3 % (1.7-9.3); Neutrophils # 6.2 K/mm3 (1.8-7.8); Neutrophils % 75.6 % (37.0-80.0); Platelet Count 209 K/mm3 (142-424); Red Blood Count 5.15 M/mm3 (4.60-6.20); Red Cell Distribution Width 13.6 % (11.5-17.5); White Blood Count 8.2 K/mm3 (4.8-10.8)
[2021-10-15 10:42] LABS: Chloride 103 mmol/L (98-107); Sodium 137 mmol/L (136-145)
[2021-10-15 10:43] LABS: Potassium 4.1 mmoL/L (3.5-5.1)
[2021-10-15 10:45] LABS: Alanine Aminotransferase 28 U/L (12-78); Albumin Level 4.1 g/dl (3.5-5.0); Alkaline Phosphatase 66 U/L (38-126); Anion Gap 12.1 mEq/L (5-15); Aspartate Amino Transferase 29 U/L (17-59); Bilirubin,Direct 0.3 mg/dl (0.0-0.4); Bilirubin,Indirect 0.4 mg/dL (0.0-0.9); Bilirubin,Total 0.7 mg/dl (0.2-1.3); Bilirubin,Unconjugated 0.4 mg/dL (0.0-1.1); Blood Urea Nitrogen 13 mg/dl (9-20); Carbon Dioxide 26 mmol/L (22.0-30.0); Cholesterol 170 mg/dl (140-200); Estimated Glomerular Filt Rate 111 ml/min (>60); GFR (African American) 135 ML/MIN (>60); Total Protein,Serum 6.2 g/dl (6.3-8.2); Triglycerides 142 mg/dl (30-150); VLDL Cholesterol 28 mg/dL (0-40)
[2021-10-15 10:46] LABS: Chol/HDL Ratio 4.5 (1-3.5); Glucose 193 mg/dl (74-100); HDL Cholesterol 38 mg/dl (40-60); Magnesium 1.6 mg/dl (1.6-2.3)
[2021-10-15 10:57] LABS: Direct LDL Cholesterol 115.68 mg/dL (100-129)
[2021-10-15 11:02] LABS: Free T4 (Free Thyroxine) 1.21 ng/dl (0.78-2.19)
[2021-10-15 11:17] LABS: Thyroid Stimulating Hormone 2.49 uIU/mL (0.465-4.68)
== END ==
PROVIDERS: PCP Family Medicine; Visit Provider Nurse Practitioner
DX: E78.5 Hyperlipidemia, unspecified; I25.10 Atherosclerotic heart disease of native coronary artery without angina pectoris; K21.9 Gastro-esophageal reflux disease without esophagitis; Z95.1 Presence of aortocoronary bypass graft; Z95.5 Presence of coronary angioplasty implant and graft; I25.5 Ischemic cardiomyopathy; E11.69 Type 2 diabetes mellitus with other specified complication; Z79.84 Long term (current) use of oral hypoglycemic drugs
CPT/HCPCS: 36415; 80048; 80061; 80076; 83735; 84439; 84443; 85025

== ENCOUNTER 2023-04-17 08:59 | Outpatient (CLI) | payer MEDICARE, SELFPAY ==
[2023-04-17 09:19] LABS: Basophils # 0.1 K/mm3 (0-0.2); Eosinophils # 0.2 K/mm3 (0.0-0.4); Eosinophils % 2.6 % (0.1-12.0); Hematocrit 48.1 % (42.0-52.0); Hemoglobin 16.1 g/dL (14.1-18.0); Lymphocytes % 21.2 % (10-50); Mean Corpuscular HGB Conc 33.5 g/dL (31.8-35.4); Mean Corpuscular Hemoglobin 31.1 pg (27.0-31.2); Mean Platelet Volume 8.3 fl (7.4-10.4); Monocytes # 0.6 K/mm3 (0.1-1.0); Neutrophils # 6.5 K/mm3 (1.8-7.8); Platelet Count 166 K/mm3 (142-424); Red Blood Count 5.18 M/mm3 (4.60-6.20); Red Cell Distribution Width 13.2 % (11.5-17.5); White Blood Count 9.4 K/mm3 (4.8-10.8)
[2023-04-17 09:58] LABS: Alanine Aminotransferase 34 U/L (12-78); Albumin Level 4.3 g/dl (3.5-5.0); Alkaline Phosphatase 66 U/L (38-126); Anion Gap 12.6 mEq/L (5-15); Aspartate Amino Transferase 28 U/L (17-59); Bilirubin,Indirect 1.1 mg/dL (0.0-0.9); Bilirubin,Total 1.1 mg/dl (0.2-1.3); Bilirubin,Unconjugated 1.3 mg/dL (0.0-1.1); Blood Urea Nitrogen 17 mg/dl (9-20); Calcium 9.2 mg/dl (8.4-10.2); Carbon Dioxide 27 mmol/L (22.0-30.0); Chloride 102 mmol/L (98-107); Chol/HDL Ratio 4.7 (1-3.5); Cholesterol 175 mg/dl (140-200); Estimated Glomerular Filt Rate 95 ml/min (>60); GFR (African American) 115 ML/MIN (>60); Glucose 185 mg/dl (74-100); HDL Cholesterol 37 mg/dl (40-60); Potassium 4.6 mmoL/L (3.5-5.1); Sodium 137 mmol/L (136-145); Total Protein,Serum 6.7 g/dl (6.3-8.2); Triglycerides 82 mg/dl (30-150); VLDL Cholesterol 16 mg/dL (0-40)
[2023-04-17 10:09] LABS: Direct LDL Cholesterol 118.94 mg/dL (100-129)
[2023-04-17 10:15] LABS: Free T4 (Free Thyroxine) 1.13 ng/dl (0.78-2.19)
[2023-04-17 10:29] LABS: Thyroid Stimulating Hormone 1.92 uIU/mL (0.465-4.68)
== END 2023-04-17 23:59 ==
LOC: LAB 09:00
PROVIDERS: PCP Family Medicine; Visit Provider Nurse Practitioner Family
DX: E11.9 Type 2 diabetes mellitus without complications (principal); E78.5 Hyperlipidemia, unspecified; I11.9 Hypertensive heart disease without heart failure; I25.10 Atherosclerotic heart disease of native coronary artery without angina pectoris; R07.89 Other chest pain; R06.00 Dyspnea, unspecified; Z95.1 Presence of aortocoronary bypass graft; Z79.84 Long term (current) use of oral hypoglycemic drugs
CPT/HCPCS: 36415; 80048; 80061; 80076; 84439; 84443; 85025

== ENCOUNTER 2023-05-09 10:56 | Outpatient (CLI) | payer MEDICARE, SELFPAY ==
--- NOTE | 2023-05-09 10:59 | NM_ITS ---
APPROVED REPORT Exam: Nuclear Stress Test Indication: cad..diabetes..high cholesterol Patient Location: Outpatient Stress Tech: Mandy Light [place] Tech:YULISSA Vanessa RT(R)(N) Ht: 5 ft 7 in Wt: 200 lbs HR: 74 bpm BP: 133/72 mmHg BSA: 2.02 m2 TID: 1.16 BMI: 31.3 History: cad..diabetes..high cholesterol Procedure: Patient received 0.4 mg of intravenous Lexiscan, resting heart rate 74 bpm, resting blood pressure 133/72 mmHg, with Lexiscan maximum heart rate achieved was 92 bpm which is 85 % of the maximum predicted heart rate and blood pressure was 133/72 mmHg. With Lexiscan, patient denied any complaint of chest pain. Cardiac Stress and Resting SPECT Images: Cardiac Stress and Resting SPECT images were obtained using technetium 99m Myoview 32.8 mCi stress and 10.30 mCi at rest. Resting and stress imaging in supine and prone positions demonstrate a large sized, severe, fixed perfusion defect in the basal to mid inferior, inferolateral, and lateral LV chowdary. Gated imaging demonstrates a severe reduction in global LV systolic function. There is akinesis of the basal to mid inferior LV wall. There is near akinesis of the basal lateral wall. LVEF is calculated at 24%. Conclusion: Large sized, severe, fixed perfusion defect in the basal to mid inferior, inferolateral, and lateral LV chowdary. No evidence of reversible ischemia. Gated imaging demonstrates a severe reduction in global LV systolic function. There is akinesis of the basal to mid inferior LV wall. There is near akinesis of the basal lateral wall. LVEF is calculated at 24%. Electronically signed by : Griselda Chatterjee MD 05/13/2023 11:35:20
--- NOTE | 2023-05-09 11:06 | CA_ITS ---
APPROVED REPORT EXAM: Comprehensive 2D, Doppler, and color-flow Echocardiogram [employer] Wirer: Greer Ferro RDCS Ht: 5 ft 6 in Wt: 201lbs BSA: 2.00 BP: 133/80 mmHg Indications: CP,CAD,P/O CABG,CM M-Mode Dimensions RVDd 2.17 cm (0.9-2.6) LA Diam 4.94 cm (1.9-4.0) LVDd 6.25 cm (3.5-5.7) LVDs 5.23 cm (3.5-5.7) IVSd 1.15 cm (0.6-1.1) PWd 1.23 cm (0.6-1.1) EF (Teich) 33.60% FS 16.30% EDV (Teich) 197.60 mL ESV (Teich) 131.20 mL Left Ventricle Left ventricle is severely dilated (LVEDVi 120 ml/m2). The left ventricular systolic function is severely reduced. There is normal left ventricular wall thickness. There is severe global hypokinesis present. There is near akinesis of the inferior and inferoseptal LV wall, as well as the lateral LV chowdary. Diastolic function is indeterminate. LVEF is 25%. Right Ventricle The right ventricle is normal size. The right ventricular systolic function is normal. Atria Left atrium is mildly dilated. The right atrium size is normal. There is no Doppler evidence of interatrial shunt. Aortic Valve The aortic valve is mildly thickened. There is no aortic valvular stenosis. No aortic regurgitation is present. Mitral Valve The mitral valve leaflets are mildly thickened. No evidence of mitral valve stenosis. Mild mitral regurgitation. Tricuspid Valve The tricuspid valve leaflets are thin and pliable. Trace tricuspid regurgitation. There is insufficient TR jet to estimate RVSP. Pulmonic Valve The pulmonary valve is normal in structure. Mild pulmonic regurgitation. Great Vessels The aortic root is normal in size. The ascending aorta is normal in size. IVC is normal in size and collapses >50% with inspiration. Pericardium There is no pericardial effusion. Other Information Study Quality: Fair Conclusion Severely dilated LV with severe reduction in LV systolic function (LVEF 25%). Near akinesis of the inferior and inferoseptal LV wall, as well as the lateral LV chowdary. Mild LA dilation. Mild MR, mild PI. Electronically signed by : Griselda Chatterjee MD 05/12/2023 19:40:04
--- NOTE | 2023-05-09 13:25 | CA_ITS ---
APPROVED REPORT Exam: Pharmacologic Technologist: Mandy Reyes, Ht: 5 ft 6 in Wt: 201 lbs BSA: 2.00 m2 HR: 76 bpm BP: 133/72 mmHg Rhythm: NSR Medical History Medications: Omeprazole,,,,, Aspirin,,,,, Metformin,,,,, Atorvastatin,,,,, Glipizide,,,,, Tylenol,,,,, Famotidine,,,,, Vitamin B Complex,,,,, Stress Test Details Test: LEXISCAN Reason for pharmacologic stress test: physical limitation. HR Resting HR: 74 bpm Max Heart Rate (APMHR): 149 bpm Max HR Achieved: 92 bpm Target HR (85% APMHR): 127 bpm % of APMHR: 62 Recovery HR: 80 bpm BP Resting BP: 133.0/72.0 mmHg Max BP: 133.0/72.0 mmHg Recovery BP: 121.0/68.0 mmHg ECG Resting ECG: NSR, LBBB rightward axis Stress ECG: No significant ST changes Arrhythmia: PVCs Clinical Exercise duration: 04:00 min Highest Stage Achieved: Exercise capacity: 1.0 METs Stress ECG Conclusion Symptoms: Head discomfort, mild SOA, very mild stomach dsicomfort. No CP. Arrhythmias/Ectopy: PVCs ST-T Changes: No significant ST-T changes. Conclusion: Nondiagnostic Lexiscan stress test due to baseline LBBB Myoview images reported separately. Test Summary REST . . . . . . . Resting REST 04:26 . . 74 . 133/ 72 . . Stage 1 01:00 . . 83 . . . . Stage 2 01:00 . . 90 . 128/ 70 . . Stage 3 01:00 . . 85 . 126/ 71 . . Stage 4 01:00 . . 85 . 128/ 74 . Stop exercise at 04:00 RECOVERY 01:00 . . 78 . 128/ 72 . . RECOVERY 02:00 . . 80 . 124/ 72 . . RECOVERY 03:00 . . 77 . 121/ 68 . . RECOVERY 03:40 . . 78 . 121/ 68 . . Electronically signed by : Griselda Chatterjee MD 05/13/2023 11:33:03
[2023-05-09] MEDS: ISOTOPE MYOVIEW (PER STUDY) 1 DOSE IV (13:37)
[2023-05-09] MEDS: SODIUM CHLORIDE 0.9% 10ML SYR (RAD ONLY) 10 ML IV ×2 (13:37)
[2023-05-09] MEDS: REGADENOSON 0.4MG/5ML SYRINGE 0.400000000000000022 MG IV (13:37)
== END 2023-05-09 23:59 ==
LOC: RAD 10:57
PROVIDERS: PCP Family Medicine; Visit Provider Nurse Practitioner Family
DX: E11.9 Type 2 diabetes mellitus without complications (principal); E78.5 Hyperlipidemia, unspecified; I25.10 Atherosclerotic heart disease of native coronary artery without angina pectoris; R07.89 Other chest pain; Z95.1 Presence of aortocoronary bypass graft; Z79.84 Long term (current) use of oral hypoglycemic drugs; R94.31 Abnormal electrocardiogram [ECG] [EKG]
CPT/HCPCS: 78452; 93017; 93018; 93306; A9502; J2785

== ENCOUNTER 2023-05-22 08:24 | Day surgery (SDC) | payer MEDICARE, SELFPAY ==
[2023-05-22] VITALS (13 sets, daily range): BP systolic 109–151; BP diastolic 55–86; PULSE 68–77; RESP 15–18; TEMP 36.6; O2SAT 94–98
--- NOTE | 2023-05-22 07:08 | IR_ITS ---
APPROVED REPORT Patient Location: Outpatient Atm Technician: YULISSA Shay RT (R) PROCEDURES Selective coronary angiogram Selective engagement of left internal mammary artery Selective engagement of the saphenous vein graft to the circumflex artery Selective engagement of the saphenous vein graft to the right coronary artery Drug-eluting stent deployment to the ostial proximal mid saphenous vein graft to the right coronary INDICATION Ischemic cardiomyopathy, Coronary artery disease, History of coronary bypass surgery, Ejection fraction 24% Informed consent was obtained prior to the procedure. COMPLICATIONS None Estimated Blood Loss: Less than 10 mls TECHNIQUE One percent lidocaine used to anesthetize the right groin. The right femoral artery was accessed via the Seldinger technique and a 5 Turkish sheath was placed in the right femoral artery. A JL 4, JR4 catheter were used to perform left heart catheterization, left ventriculogram selective coronary angiography as well as selective engagement of the 2 vein grafts and the left internal mammary artery. At the end of the diagnostic angiogram therapeutic heparin was administered giving a therapeutic ACT and the 5 Turkish sheath was exchanged for 6 Turkish sheath. An AR-1 guide catheter was placed in the saphenous vein graft to the right coronary followed by a Choice PT extra-support wire. A 2.25 x 38 mm Lachine frontier stent was deployed at 20 daljit reducing the stenosis to 0%. An additional 2.5 x 34 mm Lachine frontier stent was placed proximal to the for stent yet still overlapping which extended back into the ostial segment and deployed at 20 daljit. The balloon was then advanced and deployed at 20 daljit to post dilate the 2.25 mm stent throughout its entire length. Excellent angiographic results were obtained. There is initial angiogram demonstrated the vein graft was subtotally occluded however revascularization there was excellent inline flow into the posterior descending artery via the graft. At the end of the procedure the apparatus was removed the groin is reprepped closure change sheath was removed hemostasis was achieved using Perclose device patient was transferred to the postop holding in stable condition ANGIOGRAPHIC RESULTS The left main artery Widely patent The left anterior descending artery Is patent in the proximal segment but has a severe 90% stenosis. There are few small septal perforators along with a small diagonal artery which originate distal to the diseased area. Competitive flow is identified from the ESPITIA graft. The circumflex artery Proximally occluded The right coronary artery Proximally occluded The PRESLEY ventriculogram reveals Was not performed The left ventricular end-diastolic pressure Not measured ESPITIA to LAD widely patent Saphenous vein graft which skips to the first and second obtuse marginal artery was widely patent Saphenous vein graft to the posterior descending artery is subtotally occluded yet patent with scant antegrade flow IMPRESSION Coronary artery disease as described above Critical subtotal occlusion throughout the saphenous vein graft to the posterior descending artery Successful reconstruction of the ostial proximal mid saphenous vein graft supplying the posterior descending artery with critical disease reduced to 0% with 2 contiguous drug-eluting stents PLAN 1. Plavix 75 mg daily plus aspirin 81 mg daily 2. Continue with LifeVest 3. Reassess ejection fraction in 90 days to determine if interval improvement 4. LDL less than 55 to be achieved with high intensity statin 5. Cardiac rehabilitation 6. Standard therapy for systolic heart failure 7. Avoidance of tobacco products Electronically signed by : Moise Hidalgo MD 05/22/2023 10:55:30
[2023-05-22 09:09] LABS: Basophils # 0.1 K/mm3 (0-0.2); Basophils % 1.1 % (0.1-2.0); Eosinophils # 0.1 K/mm3 (0.0-0.4); Eosinophils % 1.5 % (0.1-12.0); Hematocrit 51.7 % (42.0-52.0); Hemoglobin 17.4 g/dL (14.1-18.0); Lymphocytes # 1.8 K/mm3 (0.7-4.5); Lymphocytes % 19.4 % (10-50); Mean Corpuscular HGB Conc 33.6 g/dL (31.8-35.4); Mean Corpuscular Hemoglobin 32.3 pg (27.0-31.2); Mean Platelet Volume 7.9 fl (7.4-10.4); Monocytes # 0.5 K/mm3 (0.1-1.0); Monocytes % 5.7 % (1.7-9.3); Neutrophils # 6.6 K/mm3 (1.8-7.8); Neutrophils % 72.4 % (37.0-80.0); Platelet Count 203 K/mm3 (142-424); Red Blood Count 5.38 M/mm3 (4.60-6.20); Red Cell Distribution Width 13.2 % (11.5-17.5); White Blood Count 9.1 K/mm3 (4.8-10.8)
[2023-05-22 09:13] LABS: Anion Gap 15.4 mEq/L (5-15); Blood Urea Nitrogen 19 mg/dl (9-20); Calcium 8.7 mg/dl (8.4-10.2); Carbon Dioxide 24 mmol/L (22.0-30.0); Chloride 103 mmol/L (98-107); Creatinine Clearance Estimated 83 mL/min (50-200); Estimated Glomerular Filt Rate 95 ml/min (>60); GFR (African American) 115 ML/MIN (>60); Glucose 188 mg/dl (74-100); Potassium 4.4 mmoL/L (3.5-5.1); Sodium 138 mmol/L (136-145)
[2023-05-22] MEDS: HEPARIN 1,000 UNITS/500ML NS (CATH LAB) 3000 UNIT IV (10:17)
[2023-05-22] MEDS: LIDOCAINE 1% 10ML MDV 20 ML IJ (10:17)
[2023-05-22] MEDS: 0.9 % SODIUM CHLORIDE 500 ML 25 ML IV (10:17)
[2023-05-22] MEDS: HEPARIN 1,000 UNITS/ML 10ML VIAL (CATH LAB) 10000 UNIT IV (10:38)
[2023-05-22] MEDS: FENTANYL 100MCG/2ML VIAL 50 MCG IV (10:44)
[2023-05-22] MEDS: MIDAZOLAM HCL 1MG/1ML 5ML VIAL 1 MG IV (10:45)
[2023-05-22] MEDS: CLOPIDOGREL 300MG TABLET 600 MG PO (10:49)
[2023-05-22] MEDS: IOPAMIDOL-370 (76%);100ML BOTTLE 110 ML IV (11:08)
[2023-05-22 11:09] LABS: CATHL Activated Clotting Time 347 SEC (74-125)
== END 2023-05-22 14:46 | disposition home or self-care (01) ==
PROVIDERS: Visit Provider Internal Medicine
DX: R93.1 Abnormal findings on diagnostic imaging of heart and coronary circulation (principal); I25.118 Atherosclerotic heart disease of native coronary artery with other forms of angina pectoris; Z95.1 Presence of aortocoronary bypass graft; E11.9 Type 2 diabetes mellitus without complications; I25.5 Ischemic cardiomyopathy; Z79.84 Long term (current) use of oral hypoglycemic drugs; Z79.899 Other long term (current) drug therapy; I50.22 Chronic systolic (congestive) heart failure; I25.810 Atherosclerosis of coronary artery bypass graft(s) without angina pectoris; R06.02 Shortness of breath
CPT/HCPCS: 80048; 85025; 85347; 92937; 92938; 93455; 99152; 99153; C1725; C1760; C1769; C1876; C1894; C9604; C9605; J1644; Q9967

== ENCOUNTER 2023-05-23 09:24 | Outpatient (CLI) | payer MEDICARE, SELFPAY ==
[2023-05-23 10:02] LABS: Basophils # 0.1 K/mm3 (0-0.2); Basophils % 0.6 % (0.1-2.0); Eosinophils # 0.1 K/mm3 (0.0-0.4); Eosinophils % 1.2 % (0.1-12.0); Hematocrit 51.3 % (42.0-52.0); Hemoglobin 16.7 g/dL (14.1-18.0); Lymphocytes # 1.6 K/mm3 (0.7-4.5); Lymphocytes % 16.7 % (10-50); Mean Corpuscular HGB Conc 32.6 g/dL (31.8-35.4); Mean Corpuscular Hemoglobin 31.3 pg (27.0-31.2); Mean Corpuscular Volume 96.2 fl (80-94); Monocytes # 0.6 K/mm3 (0.1-1.0); Monocytes % 6.3 % (1.7-9.3); Neutrophils # 7.3 K/mm3 (1.8-7.8); Neutrophils % 75.1 % (37.0-80.0); Platelet Count 191 K/mm3 (142-424); Red Blood Count 5.33 M/mm3 (4.60-6.20); Red Cell Distribution Width 13.2 % (11.5-17.5); White Blood Count 9.7 K/mm3 (4.8-10.8)
[2023-05-23 10:24] LABS: Alanine Aminotransferase 30 U/L (12-78); Albumin Level 4.5 g/dl (3.5-5.0); Albumin/Globulin Ratio 1.9 (1.1-1.8); Alkaline Phosphatase 77 U/L (38-126); Anion Gap 12.3 mEq/L (5-15); Aspartate Amino Transferase 26 U/L (17-59); Bilirubin,Total 1.1 mg/dl (0.2-1.3); Blood Urea Nitrogen 19 mg/dl (9-20); Carbon Dioxide 24 mmol/L (22.0-30.0); Chloride 103 mmol/L (98-107); Estimated Glomerular Filt Rate 83 ml/min (>60); GFR (African American) 100 ML/MIN (>60); Globulin 2.4 g/dL (1.3-3.2); Glucose 150 mg/dl (74-100); Potassium 4.3 mmoL/L (3.5-5.1); Sodium 135 mmol/L (136-145); Total Protein,Serum 6.9 g/dl (6.3-8.2)
== END 2023-05-23 23:59 ==
LOC: LAB 09:25
PROVIDERS: PCP Family Medicine; Visit Provider Internal Medicine
DX: I25.10 Atherosclerotic heart disease of native coronary artery without angina pectoris (principal); Z95.5 Presence of coronary angioplasty implant and graft
CPT/HCPCS: 36415; 80053; 85025

== ENCOUNTER 2023-06-10 09:08 | Outpatient (POV) | payer MEDICARE, SELFPAY | END 2023-06-10 23:59 | disposition home or self-care (01) | LOC: SC 09:08 | PROVIDERS: PCP Family Medicine; Visit Provider Dermatology | DX: Z00.00 Encounter for general adult medical examination without abnormal findings (principal) ==

== ENCOUNTER 2023-06-10 09:31 | Outpatient (CLI) | payer MEDICARE, SELFPAY ==
[2023-06-10 09:46] LABS: Basophils # 0.2 K/mm3 (0-0.2); Basophils % 2.3 % (0.1-2.0); Eosinophils # 0.2 K/mm3 (0.0-0.4); Hemoglobin 17.3 g/dL (14.1-18.0); Lymphocytes # 1.5 K/mm3 (0.7-4.5); Lymphocytes % 16.6 % (10-50); Mean Corpuscular Hemoglobin 34.1 pg (27.0-31.2); Mean Corpuscular Volume 94.9 fl (80-94); Mean Platelet Volume 7.9 fl (7.4-10.4); Monocytes # 0.5 K/mm3 (0.1-1.0); Monocytes % 5.1 % (1.7-9.3); Neutrophils # 6.6 K/mm3 (1.8-7.8); Platelet Count 226 K/mm3 (142-424); Red Blood Count 5.05 M/mm3 (4.60-6.20); Red Cell Distribution Width 13.5 % (11.5-17.5); White Blood Count 8.9 K/mm3 (4.8-10.8)
[2023-06-10 11:10] LABS: Chloride 103 mmol/L (98-107); Potassium 4.6 mmoL/L (3.5-5.1); Sodium 137 mmol/L (136-145)
[2023-06-10 11:13] LABS: Anion Gap 14.6 mEq/L (5-15); Blood Urea Nitrogen 25 mg/dl (9-20); Calcium 9.6 mg/dl (8.4-10.2); Carbon Dioxide 24 mmol/L (22.0-30.0); Estimated Glomerular Filt Rate 83 ml/min (>60); GFR (African American) 100 ML/MIN (>60); Glucose 162 mg/dl (74-100)
[2023-06-10 12:04] LABS: Alanine Aminotransferase 34 U/L (12-78); Albumin Level 4.6 g/dl (3.5-5.0); Alkaline Phosphatase 69 U/L (38-126); Aspartate Amino Transferase 31 U/L (17-59); Bilirubin,Direct 0.2 mg/dl (0.0-0.4); Bilirubin,Indirect 1.1 mg/dL (0.0-0.9); Bilirubin,Total 1.3 mg/dl (0.2-1.3); Chol/HDL Ratio 8.8 (1-3.5); Cholesterol 307 mg/dl (140-200); HDL Cholesterol 35 mg/dl (40-60); Total Protein,Serum 7.1 g/dl (6.3-8.2); Triglycerides 96 mg/dl (30-150); VLDL Cholesterol 19 mg/dL (0-40)
[2023-06-10 12:15] LABS: Direct LDL Cholesterol 217.25 mg/dL (100-129)
== END 2023-06-10 23:59 ==
LOC: LAB 09:32
PROVIDERS: Nurse Practitioner; PCP Family Medicine; Visit Provider Nurse Practitioner Family
DX: I25.10 Atherosclerotic heart disease of native coronary artery without angina pectoris (principal); E78.2 Mixed hyperlipidemia; E11.69 Type 2 diabetes mellitus with other specified complication; Z79.84 Long term (current) use of oral hypoglycemic drugs
CPT/HCPCS: 36415; 80048; 80061; 80076; 85025

== ENCOUNTER 2023-07-14 08:02 | Outpatient (CLI) | payer MEDICARE, SELFPAY ==
[2023-07-14] MEDS: INCLISIRAN SODIUM 284 MG/1.5 ML SYRINGE SQ (08:16)
[2023-07-14 08:28] VITALS: BP 134/62; PULSE 67; RESP 18; O2SAT 95
== END 2023-07-14 08:28 | disposition home or self-care (01) ==
LOC: INF 08:03
PROVIDERS: PCP Family Medicine; Visit Provider Nurse Practitioner Family
DX: E78.5 Hyperlipidemia, unspecified (principal)
CPT/HCPCS: 96372; J1306

== ENCOUNTER 2023-08-21 09:42 | Outpatient (CLI) | payer MEDICARE, SELFPAY ==
--- NOTE | 2023-08-21 09:43 | CA_ITS ---
APPROVED REPORT EXAM: Limited 2D Echocardiogram Bank Teller: Greer Ferro RDCS Ht: 5 ft 6 in Wt: 195lbs BSA: 1.98 BP: 120/66 mmHg Indications: RE CHECK EF LIMITED EXAM ONLY M-Mode Dimensions RVDd 3.14 cm (0.9-2.6) LA Diam 4.35 cm (1.9-4.0) LVDd 6.62 cm (3.5-5.7) LVDs 5.61 cm (3.5-5.7) IVSd 0.85 cm (0.6-1.1) PWd 0.68 cm (0.6-1.1) EF (Teich) 31.50% FS 15.30% EDV (Teich) 225.10 mL ESV (Teich) 154.30 mL Other Information Study Quality: Technically Difficult Conclusion This is a limited TTE to evaluate for LVEF. Limited windows were obtained. Technically difficult study. The left ventricle is normal in size. There is increased LV wall thickness. There is moderate global hypokinesis present. There is severe hypokinesis of the inferior, inferoseptal, inferolateral, and anteroseptal LV chowdary. LVEF is 30%. In the setting of persistently reduced LVEF, further evaluation with cardiac MRI (cardiomyopathy protocol) is recommended to accurately evaluate LVEF for possible ICD indication. Electronically signed by : Griselda Chatterjee MD 08/23/2023 01:26:02
== END 2023-08-21 23:59 | disposition home or self-care (01) ==
LOC: RT 09:43
PROVIDERS: PCP Family Medicine; Visit Provider Nurse Practitioner Family
DX: R06.02 Shortness of breath (principal); I25.10 Atherosclerotic heart disease of native coronary artery without angina pectoris; I50.20 Unspecified systolic (congestive) heart failure; I42.9 Cardiomyopathy, unspecified; Z95.810 Presence of automatic (implantable) cardiac defibrillator; Z95.5 Presence of coronary angioplasty implant and graft; Z95.1 Presence of aortocoronary bypass graft
CPT/HCPCS: 93306; 93308

== ENCOUNTER 2023-09-12 12:20 | Outpatient (CLI) | payer MEDICARE, SELFPAY ==
--- NOTE | 2023-09-12 12:56 | MR_ITS ---
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 Software platform sequences were performed using the Siemens Hatchbuck MR B19 platform. A set of three-plane, low-resolution, large [id number]-rh-dghm localizers were initially acquired. Then axial, coronal, sagittal TrueFISP, as well as axial HASTE images, were obtained. These were followed by gated TrueFISP breathold cinematic sequences obtained in the short axis with 8 mm slices and 2 mm gaps, 2-chamber (vertical long axis), 3-chamber, 4-chamber (horizontal long axis). Contrast was not administered during the study as the patient declined IV access and contrast administration. 2D-velocity phase mapping was performed. Functional parameters were calculated by offline analysis on an independent workstation ([employer] Platform, [employer]). Contrast: Not administered FINDINGS MORPHOLOGY AND FUNCTION Left ventricle: The left ventricle is severely dilated. The indexed left ventricular end-diastolic volume (LVEDVi) is 120 ml/m2 (reference range 57-105 ml/m2 in males, 56-96 ml/m2 in females). There is moderate reduction in left ventricular systolic function. There is increased LV wall thickness. Maximum LV wall thickness 12.4 mm there is severe global hypokinesis present. The inferior, lateral, and inferolateral LV chowdary are akinetic. The septum is asynchronous. LVEF is calculated at 33.3% (reference range 57-77%). Right ventricle: The right ventricle is normal in size. The indexed right ventricular end-diastolic volume (RVEDVi) is 61 ml/m2 (reference range 61-121 ml/m2 in males, 48-112 ml/m2 in females). Normal right ventricular systolic function is present. RVEF is calculated at 50.3% (reference range 52-72% in males, 51-71% in females). Atria: The left atrium is mildly dilated. The maximum indexed left atrial volume is 54 ml/m2 (reference range 26-52 ml/m2 in males, 27-53 ml/m2 in females). The right atrium is normal in size. The maximum indexed right atrial volume is 19 ml/m2 (reference range 18-90 ml/m2). Aorta: The diameter of the aortic annulus is normal, measuring 30 mm (coronal view reference range 21-30 mm in males, 19-27 mm in females). The diameter of the aortic sinus is normal, measuring 35 mm (coronal view reference range 25-42 mm in males, 24-36 mm in females). The diameter of the sinotubular junction is normal, measuring 30 mm (coronal view reference range 18-32 mm in males, 18-28 mm in females). The diameters of the ascending and descending thoracic aorta are normal. Main pulmonary artery: The main pulmonary artery diameter is normal. Pericardium: The pericardial thickness is normal. The pericardial thickness measures 2.7 mm (normal < 4.0 mm). There is no pericardial effusion. VALVES The valvular morphologies in the visualized sequences appear normal. There is no significant valvular stenosis or regurgitation of the mitral, aortic, tricuspid, or pulmonic valve noted visually. Systolic anterior motion of the mitral valve is not visualized. Ratio of pulmonary to systemic flow, Qp:Qs ratio = 1.28 (normal < or = 1.2, hemodynamically significant shunt > 1.5), demonstrating no evidence of hemodynamically significant shunt. TISSUE CHARACTERIZATION Resting Perfusion: Perfusion analysis could not be performed as the patient declined contrast administration. Myocardial Fibrosis and/or edema: Data on gadolinium enhancement is not obtained as the patient declined contrast administration. OTHER No other significant findings are noted. However, this exam is focused on the cardiac structure and function. IMPRESSION This CMR was without contrast only, as the patient declined administration of IV contrast and IV access. Severely dilated LV with moderate reduction in LV systolic function. LVEDVi= 120 ml/m2 and LVEF= 33.3%. Severe global hypokinesis present. The inferior, lateral, and inferolateral LV chowdary are akinetic. Mild increase in LV wall thickness (maximum 12.4 mm) Normal RV size with normal RV systolic function. RVEDVi= 61 ml/m2 and RVEF= 50.3%. Mild LA dilation. Data on late gadolinium enhancement and perfusion analysis cannot be obtained as the patient declined contrast administration. Ratio of pulmonary to systemic flow, Qp:Qs ratio = 1.28 (normal < or = 1.2, hemodynamically significant shunt > 1.5), demonstrating no evidence of hemodynamically significant shunt. COMPARISON None CRITICAL RESULT None COMMUNICATION The results of this study were communicated with the patient at the time of his routine follow-up in clinic shortly after the scan. The findings of this cardiac MR were reviewed, reported, and signed by Homar Chatterjee MD (Engagement Mgr). Conclusion Electronically signed by : Griselda Chatterjee MD 10/05/2023 23:38:50
[2023-09-12 13:01] LABS: Blood Urea Nitrogen 19 mg/dl (9-20); Estimated Glomerular Filt Rate 95 ml/min (>60); GFR (African American) 115 ML/MIN (>60)
[2023-09-12] MEDS: SODIUM CHLORIDE 0.9% 10ML SYR (RAD ONLY) 10 ML IV (16:16)
[2023-09-12] MEDS: GADOTERIDOL INJ 20ML SYRINGE 19 ML IV (16:16)
== END 2023-09-12 23:59 | disposition home or self-care (01) ==
LOC: RAD 12:22
PROVIDERS: PCP Family Medicine; Visit Provider Nurse Practitioner Family
DX: I42.9 Cardiomyopathy, unspecified (principal); I25.10 Atherosclerotic heart disease of native coronary artery without angina pectoris; I50.20 Unspecified systolic (congestive) heart failure; R06.02 Shortness of breath; R93.1 Abnormal findings on diagnostic imaging of heart and coronary circulation; Z95.1 Presence of aortocoronary bypass graft; Z95.5 Presence of coronary angioplasty implant and graft
CPT/HCPCS: 36415; 75557; 75561; 82565; 84520; A9576

== ENCOUNTER 2023-10-06 09:55 | Day surgery (SDC) | payer MEDICARE, SELFPAY ==
--- NOTE | 2023-10-06 07:23 | IR_ITS ---
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 Pocket formation for biventricular pacemaker generator with cardiac resynchronization/defibrillator therapy. 2. Placement of atrial sensing and pacing lead into the right atrial appendage. 3. Placement of a right ventricular sensing, pacing and shocking lead in the right ventricular apex. 4. Placement of left ventricular sensing pacing lead via the coronary sinus. 5. Permanent biventricular pacemaker generator with cardiac resynchronization/defibrillator therapy device implant. INDICATION Systolic Congestive Heart Failure, ejection <35%, Wide QRS >140ms, [place] Heart Assoication Class 3 Congestive Heart Failure Informed consent was obtained prior to the procedure. COMPLICATIONS NONE Estimated Blood Loss: LESS THAN 10 ML TECHNIQUE 1% Lidocaine with epinephrine used to anesthetized the left anterior aspect of the chest. Scalpel was used to make the initial cutaneous incision while electrocautery was used to dissect down tinto the fascia. The fascia was lifted off the pectoralis muscle and digitally manipulated creating a pocket for the defibrillator. The patient was then placed in Trendelenburg position and the subclavian vein was accessed 3 times via the Selinger technique. A 8 Yemeni sheath was placed under fluoroscopic guidance into the subclavian vein. The dilator was removed from the sheath. Using fluoroscopic guidance, the ventricular lead was placed into the right ventricular apex, screwed and secured into place. Electronic interrogation proved acceptable thresholds and voltage within the lead. Using 3-0 silk, the ventricular lead was then secured into place and sheath peeled away. Following this, a 9.5 Yemeni sheath and dilator was then placed over one of the wires while keeping the other wire in place within the subclavian vein. The dilator was removed from the sheath. Using fluoroscopic guidance, contrast was used to visualize the coronary sinus, the left ventricular lead was placed into the coronary sinus. Electronic interrogation proved acceptable thresholds and voltage within the lead. Using 3-0 silk, the left ventricular lead was then secured into place and sheath peeled away.An additional 6 Yemeni fresh sheath and dilator was placed over the existing wire. Using fluoroscopic guidance, the atrial lead was then placed into the right atrial appendage and screwed and secured in place. Electrical interrogation demonstrated acceptable thresholds and voltage number. The atrial lead was then secured into place using 3-0 silk and sheath peeled away. 1 gram of Ancef was used to flush the pocket. All 3 leads were connected to generator and tested via computer. The defibrillator then secured to the fascia. Monocryl was used to close the subcutaneous layers while roland were used to close the cutaneous layer. A pressure dressing was placed and the patient was transferred to the postop holding area in stable condition for postoperative care. INTERROGATION Generator Model number: [place] HF, [id number] Generator Serial number: [id number] Atrial lead model number: Tendril STS, 52cm, [id number] Atrial lead serial number: [id number] P-wave: 4.6mV Impedance: 700 ohms Threshold: 1.5V@0.5ms Right Ventricular lead model number: Optisure, 58cm, [id number] Right Ventricular lead serial number: [id number] Impedance: 1400 ohms Threshold: 1.7V@1.0ms Left Ventricular lead model number: Quartet, 86cm, [id number] Left Ventricular lead serial number: [id number] R-wave: >12mV Impedance: 650 ohms Threshold: 0.5V@0.5ms High voltage: 46 Pacing Parameters: Mode: DDDR Base/Max Track:60 ppm / 130 ppm No diaphragmatic stimulation at 10 volts. IMPRESSION 1. Successful Pocket formation for biventricular pacemaker generator with cardiac resynchronization/defibrillator therapy. 2. Successful placement of right atrial sensing and pacing lead into the right atrial appendage. 3. Successful placement of a right ventricular sensing, pacing and shocking lead in the right ventricular apex. 4. Successful placement of left ventricular sensing pacing lead via the coronary sinus. 5. Successful permanent biventricular pacemaker generator with cardiac resynchronization/defibrillator therapy device implant. PLAN 1. Postop wound care. Electronically signed by : Moise Hidalgo MD 10/07/2023 14:27:23
[2023-10-06 09:57] VITALS: BMI 30.7
[2023-10-06 10:26] LABS: Basophils # 0.1 K/mm3 (0-0.2); Basophils % 1.2 % (0.1-2.0); Eosinophils # 0.2 K/mm3 (0.0-0.4); Eosinophils % 1.9 % (0.1-12.0); Hematocrit 49.7 % (42.0-52.0); Hemoglobin 16.6 g/dL (14.1-18.0); Lymphocytes # 1.5 K/mm3 (0.7-4.5); Lymphocytes % 17.1 % (10-50); Mean Corpuscular HGB Conc 33.4 g/dL (31.8-35.4); Mean Corpuscular Hemoglobin 31.4 pg (27.0-31.2); Mean Corpuscular Volume 93.9 fl (80-94); Monocytes # 0.5 K/mm3 (0.1-1.0); Monocytes % 5.3 % (1.7-9.3); Neutrophils # 6.5 K/mm3 (1.8-7.8); Neutrophils % 74.5 % (37.0-80.0); Platelet Count 207 K/mm3 (142-424); Red Cell Distribution Width 13.9 % (11.5-17.5); White Blood Count 8.7 K/mm3 (4.8-10.8)
[2023-10-06 10:36] LABS: Chloride 104 mmol/L (98-107); Potassium 4.1 mmoL/L (3.5-5.1); Sodium 140 mmol/L (136-145)
[2023-10-06 10:39] LABS: Anion Gap 11.1 mEq/L (5-15); Blood Urea Nitrogen 18 mg/dl (9-20); Calcium 9.3 mg/dl (8.4-10.2); Carbon Dioxide 29 mmol/L (22.0-30.0); Creatinine Clearance Estimated 81 mL/min (50-200); Estimated Glomerular Filt Rate 83 ml/min (>60); GFR (African American) 100 ML/MIN (>60); Glucose 138 mg/dl (74-100)
[2023-10-06 10:52] VITALS: PULSE 69
--- NOTE | 2023-10-06 11:26 | P.PNANES_ITS ---
[facility] Disclaimer: The information contained in this section may have been updated after the patient was seen, as this information can be updated by other users. Medical History Presence of external cardiac defibrillator SOBOE (shortness of breath on exertion) Atypical angina HFrEF (heart failure with reduced ejection fraction) LV dysfunction Cardiomyopathy Abnormal findings on diagnostic imaging of heart and coronary circulation Cardiomyopathy GERD (gastroesophageal reflux disease) DM2 (diabetes mellitus, type 2) CAD (coronary artery disease) Surgical History S/P CABG x 4 History of coronary artery stent placement Social History Smoking Status: Never smoker alcohol intake: never substance use type: denies use current occupational status: retired Travel in the last 8 weeks: Inside the [place] household members: spouse housing: house caffeine: Yes [facility] Anesthesia Checklist Patient Identification Patient Identification: Arm Band Structural Data Admitted From: Home Planned Operative Procedure/s: Biventricular Pacemaker/AICD Consent for Planned Operative Procedure(s) Verified: Yes Verified Documents: Surgical Consent and History and Physical NPO Status Verified Time NPO: 00:00 Additional verifications Anesthesia Reactions: No Hx Blood Transfusions: No Blood Transfusion Reaction: No Airway Assessment Mallampati Score:: Class II C-Spine Mobility Assessed: Yes TMJ Mobility Assessed: Yes Dentition: Poor Dentition Neurological Assessment Level of Consciousness: Awake, Alert and Appropriate Anesthesia Plan Anesthesia Risk discussed: Yes Anesthesia Plan: Verified ASA Class: IV Anesthesia Type: MAC
[2023-10-06] MEDS: 0.9 % SODIUM CHLORIDE 1000ML 1,000 ML 25 ML IV (12:49)
[2023-10-06] MEDS: LIDOCAINE 1% W/EPI 1:100,000 20ML VIAL 20 ML SQ (12:50)
[2023-10-06] MEDS: CEFAZOLIN SODIUM 1 GM in 0.9 % SODIUM CHLORIDE 50 ML IV (12:50)
[2023-10-06] MEDS: CEFAZOLIN 1GM VIAL 1 GM TP (13:35)
--- NOTE | 2023-10-06 13:54 | XR_ITS ---
FINAL REPORT CLINICAL HISTORY: post AICD insertion FINDINGS: CHEST, Single view Comparison: None FINDINGS: Lung volumes are diminished. There is no pneumothorax. No evidence of edema is seen. Patient is status post CABG. Heart size is normal . A 2 -lead left subclavian transducer transvenous pacer device has been placed. Leads are seen positioned appropriately. IMPRESSION: Status post left subclavian transvenous pacer placement. No evidence of pneumothorax. Authenticated and ERN
[2023-10-06 14:00] VITALS: BP 134/74; PULSE 74; RESP 18; O2SAT 95
[2023-10-06 14:15] VITALS: BP 140/74; PULSE 71; RESP 18; TEMP 36.1; O2SAT 95
[2023-10-06 14:30] VITALS: BP 140/74; PULSE 69; RESP 18; O2SAT 95
[2023-10-06 14:45] VITALS: BP 135/83; PULSE 86; RESP 18; O2SAT 95
[2023-10-06 14:53] VITALS: BP 149/79; PULSE 84; RESP 19; O2SAT 97
[2023-10-06] MEDS: IOPAMIDOL-370 (76%);100ML BOTTLE 30 ML IV (16:02)
== END 2023-10-06 15:11 | disposition home or self-care (01) ==
PROVIDERS: PCP Family Medicine; Visit Provider Internal Medicine
PROC: 0JH609Z Insertion of Cardiac Resynchronization Defibrillator Pulse Generator into Chest Subcutaneous Tissue and Fascia, Open Approach (ICD-10-PCS; CPT 33249; principal; 2023-10-06 11:15)
DX: I25.10 Atherosclerotic heart disease of native coronary artery without angina pectoris (principal); E11.9 Type 2 diabetes mellitus without complications; I42.8 Other cardiomyopathies; Z95.5 Presence of coronary angioplasty implant and graft; Z79.899 Other long term (current) drug therapy; I50.20 Unspecified systolic (congestive) heart failure; Z45.02 Encounter for adjustment and management of automatic implantable cardiac defibrillator
CPT/HCPCS: 33249; 71045; 80048; 85025; C1769; C1882; C1895; C1898; C1900; J2704; Q9967

== ENCOUNTER 2023-10-13 07:55 | Outpatient (CLI) | payer MEDICARE, SELFPAY ==
[2023-10-13 08:09] VITALS: BP 138/74; PULSE 67; RESP 16; TEMP 36.4; O2SAT 98
[2023-10-13] MEDS: INCLISIRAN SODIUM 284 MG/1.5 ML SYRINGE SQ (08:09)
== END 2023-10-13 08:30 | disposition home or self-care (01) ==
LOC: INF 07:56
PROVIDERS: PCP Family Medicine; Visit Provider Nurse Practitioner Family
DX: E78.5 Hyperlipidemia, unspecified (principal)
CPT/HCPCS: 96372; J1306

== ENCOUNTER 2024-04-07 08:57 | Outpatient (CLI) | payer MEDICARE, SELFPAY ==
[2024-04-07 09:14] LABS: Basophils # 0.1 K/mm3 (0-0.2); Basophils % 0.6 % (0.1-2.0); Eosinophils # 0.1 K/mm3 (0.0-0.4); Eosinophils % 1.3 % (0.1-12.0); Hematocrit 45.9 % (42.0-52.0); Hemoglobin 15.9 g/dL (14.1-18.0); Lymphocytes # 1.8 K/mm3 (0.7-4.5); Lymphocytes % 17.4 % (10-50); Mean Corpuscular HGB Conc 34.6 g/dL (31.8-35.4); Mean Corpuscular Hemoglobin 30.3 pg (27.0-31.2); Mean Corpuscular Volume 87.6 fl (80-94); Mean Platelet Volume 9.9 fl (7.4-10.4); Monocytes # 0.8 K/mm3 (0.1-1.0); Monocytes % 7.6 % (1.7-9.3); Neutrophils # 7.3 K/mm3 (1.8-7.8); Neutrophils % 72.7 % (37.0-80.0); Platelet Count 224 K/mm3 (142-424); Red Blood Count 5.24 M/mm3 (4.60-6.20); Red Cell Distribution Width 12.1 % (11.5-17.5)
[2024-04-07 09:42] LABS: Alanine Aminotransferase 32 U/L (12-78); Albumin Level 4.6 g/dl (3.5-5.0); Alkaline Phosphatase 72 U/L (38-126); Anion Gap 16.5 mEq/L (5-15); Aspartate Amino Transferase 30 U/L (17-59); Bilirubin,Direct 0.2 mg/dl (0.0-0.4); Bilirubin,Total 1.2 mg/dl (0.2-1.3); Bilirubin,Unconjugated 1.1 mg/dL (0.0-1.1); Blood Urea Nitrogen 21 mg/dl (9-20); Calcium 9.5 mg/dl (8.4-10.2); Carbon Dioxide 28 mmol/L (22.0-30.0); Chloride 93 mmol/L (98-107); Chol/HDL Ratio 3.4 (1-3.5); Cholesterol 134 mg/dl (140-200); Estimated Glomerular Filt Rate 111 ml/min (>60); GFR (African American) 134 ML/MIN (>60); Glucose 287 mg/dl (74-100); HDL Cholesterol 39 mg/dl (40-60); Potassium 4.5 mmoL/L (3.5-5.1); Sodium 133 mmol/L (136-145); Total Protein,Serum 6.8 g/dl (6.3-8.2); Triglycerides 104 mg/dl (30-150); VLDL Cholesterol 21 mg/dL (0-40)
[2024-04-07 09:54] LABS: Direct LDL Cholesterol 81.29 mg/dL (100-129)
[2024-04-07 09:58] LABS: Free T4 (Free Thyroxine) 1.44 ng/dl (0.78-2.19)
[2024-04-07 10:12] LABS: Thyroid Stimulating Hormone 2.17 uIU/mL (0.465-4.68)
[2024-04-07 10:24] LABS: Magnesium 1.7 mg/dl (1.6-2.3)
== END 2024-04-07 23:59 | disposition home or self-care (01) ==
LOC: LAB 08:58
PROVIDERS: PCP Family Medicine; Visit Provider Nurse Practitioner Family
DX: R93.1 Abnormal findings on diagnostic imaging of heart and coronary circulation (principal); E78.2 Mixed hyperlipidemia; I25.5 Ischemic cardiomyopathy; I21.4 Non-ST elevation (NSTEMI) myocardial infarction; I50.20 Unspecified systolic (congestive) heart failure; I25.10 Atherosclerotic heart disease of native coronary artery without angina pectoris; Z95.5 Presence of coronary angioplasty implant and graft; Z95.810 Presence of automatic (implantable) cardiac defibrillator; Z95.1 Presence of aortocoronary bypass graft
CPT/HCPCS: 36415; 80048; 80061; 80076; 83735; 84439; 84443; 85025

== ENCOUNTER 2024-04-15 08:26 | Outpatient (CLI) | payer MEDICARE, SELFPAY ==
[2024-04-15 08:40] VITALS: BP 132/68; PULSE 66; RESP 18; TEMP 36.4; O2SAT 96
[2024-04-15] MEDS: INCLISIRAN SODIUM 284 MG/1.5 ML SYRINGE SUBCUT (08:40)
== END 2024-04-15 08:55 | disposition home or self-care (01) ==
LOC: INF 08:27
PROVIDERS: PCP Family Medicine; Visit Provider Nurse Practitioner Family
DX: E78.5 Hyperlipidemia, unspecified (principal)
CPT/HCPCS: 96372; J1306